=== PATIENT | male | born 1995 | race American Indian/Alaskan Native ===

== ENCOUNTER 2020-02-24 09:15 | Inpatient (IN) | payer BC, SELFPAY ==
[2020-02-24] MEDS ORDERED: ACETAMINOPHEN 325 MG TAB ONE (09:36)
[2020-02-24] MEDS ORDERED: ACETAMINOPHEN 325 MG TAB PO ONE (09:55)
[2020-02-24] MEDS ORDERED: SODIUM CHLORIDE 0.9% 1000 ML IV SOLN IV ONE (09:58)
[2020-02-24] MEDS ORDERED: ONDANSETRON 4 MG/2 ML INJ IV ONE (09:59)
--- NOTE | 2020-02-24 10:03 | Emergency Department Report ---
ED General Adult HPI - General Chief complaint: Dyspnea/Respdistress Stated complaint: CHEST PAIN Time Seen by Provider: 02/24/20 09:48 Source: patient Mode of arrival: Ambulatory Limitations: No Limitations - History of Present Illness Initial comments: Patient is 24 years old male with no significant past medical history. Patient presented to the ER complaining of fever, runny nose, cough congestion, difficulty breathing, nausea, vomiting and diarrhea. Patient stated the symptoms started 2 days ago. Patient stated that he has multiple coworkers tested positive for COVID-19. Patient denied any abdominal pain or chest pain. Severity scale (0 -10): 0 - Related Data Home Medications Medication Instructions Recorded Confirmed Last Taken No Known Home Medications [No 02/24/20 02/24/20 Unknown Reported Home Medications] Allergies Allergy/AdvReac Type Severity Reaction Status Date / Time No Known Allergies Allergy Unverified 02/24/20 09:23 ED Review of Systems ROS: Stated complaint: CHEST PAIN Other details as noted in HPI Comment: All other systems reviewed and negative Constitutional: chills, fever ENT: congestion Respiratory: cough, shortness of breath Cardiovascular: palpitations. denies: chest pain Gastrointestinal: nausea, vomiting, diarrhea Neurological: weakness ED Past Medical Hx - Past Medical History Previous Medical History?: No - Surgical History Past Surgical History?: No - Social History Smoking Status: Never Smoker Substance Use Type: Marijuana - Medications Home Medications: Home Medications Medication Instructions Recorded Confirmed Last Taken Type No Known Home Medications [No 02/24/20 02/24/20 Unknown History Reported Home Medications] ED Physical Exam - General Limitations: No Limitations General appearance: alert, in no apparent distress - Head Head exam: Present: atraumatic, normocephalic, normal inspection - Eye Eye exam: Present: normal appearance - ENT ENT exam: Present: mucous membranes dry - Neck Neck exam: Present: normal inspection, full ROM. Absent: tenderness, meningismus - Respiratory Respiratory exam: Present: normal lung sounds bilaterally - Cardiovascular Cardiovascular Exam: Present: tachycardia - GI/Abdominal GI/Abdominal exam: Present: soft, normal bowel sounds. Absent: distended, tenderness, guarding, rebound, rigid, organomegaly, mass, bruit, pulsatile mass, hernia - Extremities Exam Extremities exam: Present: normal inspection, full ROM, normal capillary refill. Absent: pedal edema, calf tenderness - Back Exam Back exam: Present: normal inspection, full ROM. Absent: tenderness, CVA tenderness (R), CVA tenderness (L), muscle spasm, paraspinal tenderness, vertebral tenderness - Neurological Exam Neurological exam: Present: alert, oriented X3, CN II-XII intact, normal gait, reflexes normal - Psychiatric Psychiatric exam: Present: normal mood - Skin Skin exam: Present: warm, intact, normal color ED Course Vital Signs 02/24/20 02/24/20 02/24/20 09:23 10:35 10:40 Temperature 103.3 F H Pulse Rate 127 H 109 H 106 H Respiratory 22 25 H 23 Rate Blood Pressure 140/84 Blood Pressure 159/94 [Right] O2 Sat by Pulse 93 95 Oximetry 02/24/20 02/24/20 02/24/20 10:50 10:56 11:00 Temperature Pulse Rate 115 H 104 H Respiratory 29 H 18 14 Rate Blood Pressure 140/84 140/84 Blood Pressure [Right] O2 Sat by Pulse 94 94 Oximetry 02/24/20 02/24/20 02/24/20 11:10 11:20 11:30 Temperature Pulse Rate 100 H 105 H 104 H Respiratory 24 13 23 Rate Blood Pressure 140/84 140/84 140/84 Blood Pressure [Right] O2 Sat by Pulse 93 94 94 Oximetry 02/24/20 02/24/20 02/24/20 11:40 11:50 12:00 Temperature Pulse Rate 103 H 108 H 94 H Respiratory 22 23 22 Rate Blood Pressure 141/64 141/64 141/64 Blood Pressure [Right] O2 Sat by Pulse 92 92 93 Oximetry 02/24/20 02/24/20 02/24/20 12:10 12:20 12:30 Temperature Pulse Rate 88 105 H 100 H Respiratory 20 19 26 H Rate Blood Pressure 132/77 132/77 132/77 Blood Pressure [Right] O2 Sat by Pulse 91 92 94 Oximetry 02/24/20 02/24/20 02/24/20 12:40 12:50 13:00 Temperature Pulse Rate 101 H 105 H 96 H Respiratory 26 H 26 H 25 H Rate Blood Pressure 132/77 132/77 132/77 Blood Pressure [Right] O2 Sat by Pulse 92 92 92 Oximetry 02/24/20 02/24/20 02/24/20 13:10 13:20 13:30 Temperature Pulse Rate 99 H 96 H 96 H Respiratory 26 H 24 30 H Rate Blood Pressure 152/90 152/90 152/90 Blood Pressure [Right] O2 Sat by Pulse 93 94 93 Oximetry 02/24/20 02/24/20 02/24/20 13:40 13:50 14:00 Temperature Pulse Rate 97 H 97 H 112 H Respiratory 27 H 26 H 26 H Rate Blood Pressure 152/90 152/90 152/90 Blood Pressure [Right] O2 Sat by Pulse 93 95 94 Oximetry 02/24/20 02/24/20 02/24/20 14:10 14:20 14:30 Temperature Pulse Rate 103 H 104 H 103 H Respiratory 19 28 H 26 H Rate Blood Pressure 158/85 158/85 158/85 Blood Pressure [Right] O2 Sat by Pulse 94 92 94 Oximetry 02/24/20 02/24/20 02/24/20 14:40 14:50 15:00 Temperature Pulse Rate 100 H 98 H 88 Respiratory 18 30 H 18 Rate Blood Pressure 158/85 158/85 158/85 Blood Pressure 132/72 [Right] O2 Sat by Pulse 90 94 95 Oximetry 02/24/20 15:10 Temperature Pulse Rate 106 H Respiratory 26 H Rate Blood Pressure 149/82 Blood Pressure [Right] O2 Sat by Pulse 93 Oximetry ED Medical Decision Making - Lab Data Result diagrams: 02/24/20 10:11 02/24/20 10:55 - Radiology Data Radiology results: report reviewed - Medical Decision Making Patient is 24 years old male with no significant past medical history. Patient presented to the ER complaining of fever, runny nose, cough congestion, difficulty breathing, nausea, vomiting and diarrhea. Patient stated the symptoms started 2 days ago. Patient stated that he has multiple coworkers tested positive for COVID-19. Patient denied any abdominal pain or chest pain. Sepsis protocol immediately initiated. Patient received normal saline 30 mL/kg. Chest x-ray showed an pneumonia and patient received Rocephin and Zithromax. Patient is highly suspected to have COVID-19. COVID-19 PCR ordered. Patient discussed with dr Root he agreed to admit to the hospital, Critical Care Time: Yes Critical care time in (mins) excluding proc time.: 30 Critical care attestation.: If time is entered above; I have spent that time in minutes in the direct care of this critically ill patient, excluding procedure time. ED Disposition Clinical Impression: Suspected 2019 novel coronavirus infection, Acute nausea with nonbilious vomiting Pneumonia Qualifiers: Laterality: left Disposition: DC-09 OP ADMIT IP TO THIS HOSP Is pt being admited?: Yes Condition: Stable
--- NOTE | 2020-02-24 10:22 | XRay Report ---
CHEST 1 VIEW INDICATION: Fever, cough and shortness of breath. COMPARISON: None FINDINGS: Support devices: None. Heart: Within normal limits. Lungs/Pleura: There is patchy infiltrate in the lingula concerning for pneumonia. The right lung is c lear. No pleural fluid or pneumothorax is appreciated. Additional findings: None. IMPRESSION: Left lung infiltrate concerning for pneumonia. Signer Name: Manuelito Smith Jr, MD Signed: 02/24/2020 10:18 AM Workstation Name: [id number]
[2020-02-24 10:33] LABS: Basophils % (Auto) 0.5 % (0.0-1.8); Lymphocytes # (Auto) 1.4 K/mm3 (1.2-5.4); Lymphocytes % (Auto) 13.2 % (13.4-35.0); Mean Corpuscular HGB Conc 36 % (32-34); Mean Corpuscular Volume 93 fl (84-94); Monocytes # (Auto) 1.2 K/mm3 (0.0-0.8); Monocytes % (Auto) 11.4 % (0.0-7.3); Platelet Count 270 K/mm3 (140-440); Red Blood Count 4.88 M/mm3 (3.65-5.03)
[2020-02-24 10:38] LABS: Hematocrit 45.5 % (35.5-45.6); Hemoglobin 16.3 gm/dl (11.8-15.2)
[2020-02-24 11:04] LABS: Alanine Aminotransferase 23 units/L (7-56); Albumin 4.4 g/dL (3.9-5); BUN/Creatinine Ratio 7; Blood Urea Nitrogen 7 mg/dL (9-20); Calcium 8.9 mg/dL (8.4-10.2); Hemolysis Index 16
[2020-02-24 11:48] LABS: C-Reactive Protein 5.6 mg/dL (0.00-1.30)
[2020-02-24] MEDS ORDERED: cefTRIAXone/NS 1 GM/50 ML 1 GM/50 ML BAG IV ONE ×2 (11:50→13:44)
[2020-02-24] MEDS ORDERED: AZITHROMYCIN 500 MG in SODIUM CHLORIDE 0.9% 250ML 250 ML IV ONE (12:15)
--- NOTE | 2020-02-24 12:27 | History and Physical Report ---
History of Present Illness Chief complaint: I cannot breathe History of present illness: 24 YO Male with Obesity Hypoventilation Syndrome presents to ED for evaluation. Pt states that he has experienced shortness of breath, fever to 103.3 F, rhinorrhea, nasal congestion, dry cough, difficulty breathing nausea, multiple episodes of vomiting, multiple loose stools over the past 2 days with persistently worsening symptoms over the same timeframe. Patient acknowledges known exposure to COVID-19. Patient transported to [facility] for further evaluation and care of the aforementioned symptoms. Patient seen and evaluated in the emergency department. Lab and imaging studies reviewed. Patient found to have acute hypoxemic respiratory failure with a pulse oximetry of 87% with exertion, left lower lobe pneumonia, obesity hypoventilation, as well as symptoms consistent with COVID-19 infection. Patient admitted to medical floor due to increased risk of cardiopulmonary decompensation and initiated on pneumonia protocol as well as COVID-19 protocol. Infectious disease service consulted in the emergency department. Patient knowledges fever, positive COVID-19 exposure, shortness of breath, malaise, weakness. Patient denies chest pain, palpitation, syncope, trauma, prolonged travel/immobility, unilateral leg swelling, calf pain, individual/family history of DVT/PE/bleeding/blood clotting disorders. No prior admission for review. No medication listed for reconciliation at the time of my admission. Past History Past Medical History: other (See HPI) Past Surgical History: No surgical history, Other (Reviewed) Social history: single. denies: smoking, alcohol abuse, prescription drug abuse Family history: diabetes, hypertension Medications and Allergies Allergies Allergy/AdvReac Type Severity Reaction Status Date / Time No Known Allergies Allergy Unverified 02/24/20 09:23 Active Meds: Active Medications Azithromycin 500 mg/ Sodium (Chloride) 250 mls @ 250 mls/hr IV ONCE ONE; Protocol Stop: 02/24/20 13:14 Review of Systems Constitutional: fever, weakness, malaise, lethargy, no weight loss, no weight gain, no sweats, no night sweats Ears, nose, mouth and throat: no ear pain, no ear discharge, no tinnitis, no decreased hearing, no nose pain Cardiovascular: shortness of breath, no chest pain, no orthopnea, no p alpitations Respiratory: cough, shortness of breath, no hemoptysis, no pain, no pain on inspiration Gastrointestinal: nausea, vomiting, diarrhea, no constipation, no BRBPR, no melena, no hematochezia Genitourinary Male: no hematuria, no flank pain, no discharge, no urinary frequency, no urinary hesitancy Rectal: no pain, no incontinence, no bleeding Musculoskeletal: no neck stiffness, no neck pain, no shooting arm pain, no arm numbness/tingling, no low back pain Integumentary: no rash, no pruritis, no redness, no sores, no wounds Neurological: no transient paralysis, no paralysis, no weakness, no parathesias, no numbness, no tingling Psychiatric: no anxiety, no memory loss, no change in sleep habits, no insomnia, no hypersomnia, no change in appetite Endocrine: no cold intolerance, no heat intolerance, no polyphagia, no excessive thirst, no polyuria, no nocturia, no excessive sweating Hematologic/Lymphatic: no easy bruising, no easy bleeding Allergic/Immunologic: no allergic rhinitis, no wheezing Exam - Constitutional Vitals: Temp Pulse Resp BP Pulse Ox 103.3 F H 127 H 22 159/94 93 02/24/20 09:23 02/24/20 09:23 02/24/20 09:23 02/24/20 09:23 02/24/20 09:23 General appearance: Present: mild distress, obese - EENT Eyes: Present: PERRL ENT: hearing intact, clear oral mucosa - Neck Neck: Present: supple, normal ROM - Respiratory Respiratory effort: normal Respiratory: bilateral: diminished, rhonchi - Cardiovascular Heart Sounds: Present: S1 & S2. Absent: rub, click - Extremities Extremities: pulses symmetrical, No edema Peripheral Pulses: within normal limits - Abdominal General gastrointestinal: Present: soft, non-tender, non-distended, normal bowel sounds Male genitourinary: Present: normal - Integumentary Integumentary: Present: clear, warm, dry - Musculoskeletal Musculoskeletal: generalized weakness - Psychiatric Psychiatric: appropriate mood/affect, intact judgment & insight - Neurologic Neurologic: CNII-XII intact, moves all extremities Results - Labs CBC & Chem 7: 02/24/20 10:11 02/24/20 10:55 Labs: Abnormal lab results 02/24/20 02/24/20 02/24/20 Range/Units 10:11 10:11 10:55 Hgb 16.3 H (11.8-15.2) gm/dl MCH 34 H (28-32) pg MCHC 36 H (32-34) % RDW 13.0 L (13.2-15.2) % Lymph % (Auto) 13.2 L (13.4-35.0) % [place] % (Auto) 11.4 H (0.0-7.3) % [place] # 1.2 H (0.0-0.8) K/mm3 Seg Neutrophils % 74.9 H (40.0-70.0) % Seg Neutrophils # 7.8 H (1.8-7.7) K/mm3 D-Dimer 676.73 H (0-234) ng/mlDDU BUN 7 L (9-20) mg/dL Glucose 106 H (75-100) mg/dL Ferritin (13.0-400.0) ng/mL Lactate Dehydrogenase (91-180) units/L C-Reactive Protein (0.00-1.30) mg/dL 02/24/20 02/24/20 Range/Units 10:55 10:55 Hgb (11.8-15.2) gm/dl MCH (28-32) pg MCHC (32-34) % RDW (13.2-15.2) % Lymph % (Auto) (13.4-35.0) % [place] % (Auto) (0.0-7.3) % [place] # (0.0-0.8) K/mm3 Seg Neutrophils % (40.0-70.0) % Seg Neutrophils # (1.8-7.7) K/mm3 D-Dimer (0-234) ng/mlDDU BUN (9-20) mg/dL Glucose 101 H (75-100) mg/dL Ferritin 2458.0 H (13.0-400.0) ng/mL Lactate Dehydrogenase 284 H (91-180) units/L C-Reactive Protein 5.60 H (0.00-1.30) mg/dL Assessment and Plan - Patient Problems (1) Acute hypoxemic respiratory failure Current Visit: Yes Status: Acute Plan to address problem: Supplemental oxygen, pulse oximetry, nebulizer therapy, chest x-ray, incentive spirometry, coronavirus testing. (2) Obesity hypoventilation syndrome Current Visit: Yes Status: Acute Plan to address problem: Supplemental oxygen, nebulizer therapy, noninvasive positive pressure ventilation as clinically indicated, incentive spirometry, early ambulation, pulmonary toilet. (3) Pneumonia Current Visit: Yes Status: Acute Qualifiers: Laterality: left Plan to address problem: Pneumonia protocol: IV antibiotic therapy, chest x-ray, nebulizer therapy, pulse oximetry, blood culture, (4) Suspected 2019 novel coronavirus infection Current Visit: Yes Status: Acute Plan to address problem: COVID-19 protocol: Infectious disease service consulted in ED, coronavirus PCR sent in emergency department, prolonged ventilation, (5) DVT prophylaxis Current Visit: Yes Status: Acute Plan to address problem: SCD to bilateral lower extremities while in bed, patient is ambulatory
[2020-02-24] MEDS ORDERED: ONDANSETRON 4 MG/2 ML INJ IV PRN (12:28)
[2020-02-24] MEDS ORDERED: SODIUM CHLORIDE 0.9% 1000 ML 1,000 ML ONE (13:44)
[2020-02-24] MEDS ORDERED: ONDANSETRON 4 MG/2 ML INJ ONE (13:44)
--- NOTE | 2020-02-24 15:24 | Consultation ---
History of Present Illness - Reason for Consult Consult date: 02/24/20 covid Requesting physician: AMY CHAVEZ - History of Present Illness 24 years old male with history of morbid obesity, admitted on due to 2-day history of worsening fever, rhinorrhea, dry cough, nausea, vomiting, diarrhea for 3 days. On arrival, temperature was 103.3, HR 127, RR 22, O2 sat 93%, BP 159/94. Initial WBC 10.4. D-dimer 676. Ferritin 2458. LDH 284. CRP 5.6. Lactate 1.6. Chest x-ray left-sided infiltrate. Review of Systems: positive in bold print General: fever, chills, malaise Cutaneous: rash, pruritus Head: headaches or injury Eyes: changes in vision, eye pain, double vision Ears: ear pain, ear discharge, ringing or hearing loss Nose: nose bleeding, stuffiness Mouth & throat: bleeding gums, horseness, no dental problems, or swollen glands Neck: no pain, node enlargement/lumps, tyroid enlargement or tenderness Respiratory: SOB, cough, RASHEED, wheezing, sputum, hemoptysis, pleuritic chest pain Cardiovascular: chest pain, leg edema, cyanosis, RASHEED, orthopnea Musculoskeletal: edema, deformities, pain Gastrointestinal: nausea, vomiting, diarrhea and abdominal pain, hematemesis, constipation, melena, bright red blood in stools, fecal incontinence, jaundice Genitourinary/Reproductive: frequent urination, dysuria, hematuria, incontinence Neurogical: seizures, headaches, weakness, paresthesias, loss of speech or vision; memory loss, vertigo, tremors, numbness Psychiatric: stable mood; excessive anxiety, sadness or moodiness Medications and Allergies Allergies Allergy/AdvReac Type Severity Reaction Status Date / Time No Known Allergies Allergy Unverified 02/24/20 09:23 Active Meds: Active Medications Acetaminophen (Tylenol) 650 mg PO Q4H PRN PRN Reason: Pain MILD(1-3)/Fever >100.5/VASQUEZ Ceftriaxone Sodium (Rocephin/Ns 2 Gm/100 Ml) 2 gm in 100 mls @ 200 mls/hr IV Q24HR WAYNE; Protocol Azithromycin 500 mg/ Sodium (Chloride) 250 mls @ 250 mls/hr IV Q24HR WAYNE; Protocol Ondansetron HCl (Zofran) 4 mg IV Q8H PRN PRN Reason: Nausea And Vomiting Sodium Chloride (Sodium Chloride Flush Syringe 10 Ml) 10 ml IV BID WAYNE Sodium Chloride (Sodium Chloride Flush Syringe 10 Ml) 10 ml IV PRN PRN PRN Reason: LINE FLUSH Physical Examination - Physical Exam Narrative exam: Limited physical exam for PPE conservation - Constitutional Vitals: Vital Signs Temp Pulse Resp BP Pulse Ox 103.3 F H 127 H 18 159/94 93 02/24/20 09:23 02/24/20 09:23 02/24/20 10:56 02/24/20 09:23 02/24/20 09:23 Temperature -Last 24 Hours Temperature 103.3 F Results - Labs CBC & Chem 7: 02/24/20 10:11 02/24/20 10:55 Labs: Abnormal lab results 02/24/20 02/24/20 02/24/20 Range/Units 10:11 10:11 10:55 Hgb 16.3 H (11.8-15.2) gm/dl MCH 34 H (28-32) pg MCHC 36 H (32-34) % RDW 13.0 L (13.2-15.2) % Lymph % (Auto) 13.2 L (13.4-35.0) % [place] % (Auto) 11.4 H (0.0-7.3) % [place] # 1.2 H (0.0-0.8) K/mm3 Seg Neutrophils % 74.9 H (40.0-70.0) % Seg Neutrophils # 7.8 H (1.8-7.7) K/mm3 D-Dimer 676.73 H (0-234) ng/mlDDU BUN 7 L (9-20) mg/dL Glucose 106 H (75-100) mg/dL Ferritin (13.0-400.0) ng/mL Lactate Dehydrogenase (91-180) units/L C-Reactive Protein (0.00-1.30) mg/dL 02/24/20 02/24/20 Range/Units 10:55 10:55 Hgb (11.8-15.2) gm/dl MCH (28-32) pg MCHC (32-34) % RDW (13.2-15.2) % Lymph % (Auto) (13.4-35.0) % [place] % (Auto) (0.0-7.3) % [place] # (0.0-0.8) K/mm3 Seg Neutrophils % (40.0-70.0) % Seg Neutrophils # (1.8-7.7) K/mm3 D-Dimer (0-234) ng/mlDDU BUN (9-20) mg/dL Glucose 101 H (75-100) mg/dL Ferritin 2458.0 H (13.0-400.0) ng/mL Lactate Dehydrogenase 284 H (91-180) units/L C-Reactive Protein 5.60 H (0.00-1.30) mg/dL Assessment and Plan Cultures: Blood cultures pending Assessment: 24 years old male with history of morbid obesity, admitted on due to 2-day history of worsening fever, rhinorrhea, dry cough, nausea, vomiting, diarrhea for 3 days: #Sepsis: present on admission with fever, tachycardia, hypotension, elevated lactate; source likely pneumonia. #Left-sided pneumonia: Given outbreak of COVID-19 this could be COVID-19 pneumonia. Other possibilities bacterial pneumonia, Legionella. Inflammatory markers are elevated- D-dimer 676. Ferritin 2458. LDH 284. CRP 5.6. #Morbid obesity. #Hypoxemia: Transient, currently on room air. Recommendations: Obtain consent for COVID-19 convalescent plasma Stat type and screen Follow-up blood cultures Obtain Streptococcus pneumoniae urine antigen and Legionella urine antigen Start ceftriaxone 2 g IV once a day Start azithromycin 500 g IV once a day Follow-up COVID-19 test, if positive will start trended severe 200 mg IV x1 followed by 100 mg IV daily x4 days Will consider Tocilizumab once ferritin level is available After COVID test POSITIVE and if hypoxemia will start Solu-Medrol 40 mg IV every 8 hour Will follow. Ana M Schaefer MD Infectious Diseases Special Procedure [facility] M [phone] O [phone]
[2020-02-24] MEDS: ACETAMINOPHEN 325 MG TAB PO PRN ×2 (17:27→22:58)
[2020-02-25] MEDS: ACETAMINOPHEN 325 MG TAB PO PRN ×3 (05:04→16:58)
[2020-02-25 09:06] LABS: Basophils % (Auto) 0.5 % (0.0-1.8); Eosinophils % (Auto) 0.1 % (0.0-4.3); Hematocrit 45.3 % (35.5-45.6); Hemoglobin 15.6 gm/dl (11.8-15.2); Lymphocytes # (Auto) 1.4 K/mm3 (1.2-5.4); Lymphocytes % (Auto) 15.7 % (13.4-35.0); Mean Corpuscular HGB Conc 35 % (32-34); Mean Corpuscular Volume 95 fl (84-94); Monocytes # (Auto) 0.9 K/mm3 (0.0-0.8); Monocytes % (Auto) 10.1 % (0.0-7.3); Platelet Count 271 K/mm3 (140-440); Red Blood Count 4.79 M/mm3 (3.65-5.03); Red Cell Distribution Width 13.5 % (13.2-15.2)
[2020-02-25 09:51] LABS: BUN/Creatinine Ratio 18; Blood Urea Nitrogen 18 mg/dL (9-20); Calcium 8.3 mg/dL (8.4-10.2)
[2020-02-25 09:52] LABS: Hemolysis Index 49
[2020-02-25] MEDS ORDERED: AZITHROMYCIN 500 MG in SODIUM CHLORIDE 0.9% 250ML 250 ML IV SCH (10:00)
[2020-02-25] MEDS: cefTRIAXone/NS 2 GM/100 ML 2 GM/100 ML BAG IV SCH (11:09)
--- NOTE | 2020-02-25 21:28 | Progress Note ---
Assessment and Plan Cultures: Blood cultures no growth today COVID POSITIVE Assessment: 24 years old male with history of morbid obesity, admitted on due to 2-day history of worsening fever, rhinorrhea, dry cough, nausea, vomiting, diarrhea for 3 days: #Sepsis: present on admission with fever, tachycardia, hypotension, elevated lactate; source likely pneumonia. #Left-sided pneumonia: secondary to COVID-19 pneumonia. Inflammatory markers are elevated- D-dimer 676. Ferritin 2458. LDH 284. CRP 5.6. #Morbid obesity. #Hypoxemia: Transient, currently on room air. Some sats down to 93% Recommendations: check exercise O2 sat ambulating start Solu-Medrol 40 mg IV every 8 hour if hypoxemia will consider remdesivir repeat markers Will consider Tocilizumab if ferritin worsening Follow-up Streptococcus pneumoniae urine antigen and Legionella urine antigen continue ceftriaxone 2 g IV once a day continue azithromycin 500 g IV once a day Will follow. Ana M Schaefer MD Infectious Diseases [employer] [facility] M [phone] O [phone] Subjective Date of service: 02/25/20 Principal diagnosis: COVID Interval history: Feels ok, noted fever on room air Objective - Exam Narrative Exam: Limited physical exam for PPE conservation - Constitutional Vitals: Vital Signs Temp Pulse Resp BP Pulse Ox 122.0 F H 105 H 20 145/91 97 02/25/20 16:16 02/25/20 16:16 02/25/20 16:16 02/25/20 16:16 02/25/20 16:16 Temperature -Last 24 Hours Temperature 122.0 F Temperature 102.9 F Temperature 99.6 F Temperature 102.2 F Temperature 103.0 F - Labs CBC & Chem 7: 02/25/20 08:03 02/25/20 08:03 Labs: Abnormal lab results 02/24/20 02/25/20 02/25/20 Range/Units 15:01 08:03 08:03 Hgb 15.6 H (11.8-15.2) gm/dl MCV 95 H (84-94) fl MCH 33 H (28-32) pg MCHC 35 H (32-34) % [place] % (Auto) 10.1 H (0.0-7.3) % [place] # 0.9 H (0.0-0.8) K/mm3 Seg Neutrophils % 73.6 H (40.0-70.0) % Sodium 135 L (137-145) mmol/L Chloride 94 L (98-107) mmol/L Calcium 8.3 L (8.4-10.2) mg/dL Coronavirus (PCR) Positive A (Negative)
[2020-02-25] MEDS: methylPREDNISolone Sod Succinate 40 MG/1 ML INJ IV SCH (22:44)
[2020-02-26] MEDS: methylPREDNISolone Sod Succinate 125 MG/2 ML INJ IV SCH ×3 (06:37→21:37)
[2020-02-26] MEDS: methylPREDNISolone Sod Succinate 40 MG/1 ML INJ IV SCH (07:23)
--- NOTE | 2020-02-26 08:27 | Progress Note ---
Assessment and Plan Day #2 Positive for coronavirus Symptomatically improving Oxygen saturations are around 92-94 (1) Acute hypoxemic respiratory failure Current Visit: Yes Status: Acute Plan to address problem: Supplemental oxygen, pulse oximetry, nebulizer therapy, chest x-ray, incentive spirometry, coronavirus testing. (2) Obesity hypoventilation syndrome Current Visit: Yes Status: Acute Plan to address problem: Supplemental oxygen, nebulizer therapy, noninvasive positive pressure ventilation as clinically indicated, incentive spirometry, early ambulation, pulmonary toilet. (3) Pneumonia Current Visit: Yes Status: Acute Qualifiers: Laterality: left Plan to address problem: Pneumonia protocol: IV antibiotic therapy, chest x-ray, nebulizer therapy, pulse oximetry, blood culture, (4) Suspected 2019 novel coronavirus infection Current Visit: Yes Status: Acute Plan to address problem: COVID-19 protocol: Infectious disease service consult appreciated, coronavirus PCR positive (5) DVT prophylaxis Current Visit: Yes Status: Acute Plan to address problem: SCD to bilateral lower extremities while in bed, patient is ambulatory Subjective Date of service: 02/25/20 Principal diagnosis: COVID Interval history: 24 YO Male with Obesity Hypoventilation Syndrome presents to ED for evaluation. Pt states that he has experienced shortness of breath, fever to 103.3 F, rhinorrhea, nasal congestion, dry cough, difficulty breathing nausea, multiple episodes of vomiting, multiple loose stools over the past 2 days with persistently worsening symptoms over the same timeframe. Patient acknowledges known exposure to COVID-19. Patient transported to [facility] for further evaluation and care of the aforementioned symptoms. Patient seen and evaluated in the [facility] department. Lab and imaging studies reviewed. Patient found to have acute hypoxemic respiratory failure with a pulse oximetry of 87% with exertion, left lower lobe pneumonia, obesity hypoventilation, as well as symptoms consistent with COVID-19 infection. Patient admitted to medical floor due to increased risk of cardiopulmonary decompensation and initiated on pneumonia protocol as well as COVID-19 protocol. Infectious disease service consulted in the emergency department. Patient knowledges fever, positive COVID-19 exposure, shortness of breath, malaise, weakness. Patient denies chest pain, palpitation, syncope, trauma, prolonged travel/immobility, unilateral leg swelling, calf pain, individual/family history of DVT/PE/bleeding/blood clotting disorders. No prior admission for review. No medication listed for reconciliation at the time of my admission. Day #2 Symptomatically better Objective - Constitutional Vitals: Vital Signs - 12hr 02/25/20 02/26/20 21:56 04:17 Temperature 99.1 F 98.8 F Pulse Rate 99 H 98 H Respiratory 20 18 Rate Blood Pressure 152/87 Blood Pressure 128/79 [Right] O2 Sat by Pulse 96 94 Oximetry General appearance: Present: mild distress, well-nourished - EENT Eyes: PERRL, EOM intact ENT: hearing intact, clear oral mucosa Ears: bilateral: normal - Neck Neck: supple, normal ROM - Respiratory Respiratory effort: normal Respiratory: bilateral: CTA, rales (Scattered) - Breasts Breasts: normal - Cardiovascular Heart rate: 88 Rhythm: regular Heart Sounds: Present: S1 & S2. Absent: gallop, rub Extremities: pulses intact, No edema, normal color, Full ROM - Gastrointestinal General gastrointestinal: Present: soft, non-tender, non-distended, normal bowel sounds - Genitourinary Male genitourinary: normal - Integumentary Integumentary: clear, warm, dry - Musculoskeletal Musculoskeletal: 1, strength equal bilaterally - Neurologic Neurologic: moves all extremities - Psychiatric Psychiatric: memory intact, appropriate mood/affect, intact judgment & insight - Labs CBC & Chem 7: 02/25/20 08:03 02/25/20 08:03 Labs: Abnormal lab results 02/24/20 02/25/20 02/25/20 Range/Units 15:01 08:03 08:03 Hgb 15.6 H (11.8-15.2) gm/dl MCV 95 H (84-94) fl MCH 33 H (28-32) pg MCHC 35 H (32-34) % [place] % (Auto) 10.1 H (0.0-7.3) % [place] # 0.9 H (0.0-0.8) K/mm3 Seg Neutrophils % 73.6 H (40.0-70.0) % Sodium 135 L (137-145) mmol/L Chloride 94 L (98-107) mmol/L Calcium 8.3 L (8.4-10.2) mg/dL Coronavirus (PCR) Positive A (Negative)
[2020-02-26] MEDS: cefTRIAXone/NS 2 GM/100 ML 2 GM/100 ML BAG IV SCH (09:42)
[2020-02-26] MEDS ORDERED: AZITHROMYCIN 250 MG TAB PO SCH (10:00)
--- NOTE | 2020-02-26 14:07 | Progress Note ---
Assessment and Plan Cultures: Blood cultures no growth today COVID POSITIVE Assessment: 24 years old male with history of morbid obesity, admitted on due to 2-day history of worsening fever, rhinorrhea, dry cough, nausea, vomiting, diarrhea for 3 days: #Sepsis: remains with fever; source likely pneumonia. #COVID pneumonia: secondary to COVID-19 pneumonia. Inflammatory markers are elevated- D-dimer 676. Ferritin 2458. LDH 284. CRP 5.6. #Morbid obesity. #Acute respiratory failure: now on NC 3L sats 93% Recommendations: Please consent for COVID plasma, already typed O positive Pulmonary consult Continue Solu-Medrol 40 mg IV every 8 hour day 2 Start Remdesivir Start Tocilizumab if ferritin worsening repeat markers Stop ceftriaxone and azithrmycin Will follow. Ana M Schaefer MD Infectious Diseases Applicator [employer] [facility] ([facility]) M [phone] O [phone] Subjective Date of service: 02/26/20 Principal diagnosis: COVID Interval history: Remains with fever now on 3L NC Objective - Exam Narrative Exam: Limited physical exam for PPE conservation - Constitutional Vitals: Vital Signs Temp Pulse Resp BP Pulse Ox 100.3 F H 84 24 132/78 93 02/26/20 11:58 02/26/20 11:58 02/26/20 11:58 02/26/20 11:58 02/26/20 11:58 Temperature -Last 24 Hours Temperature 100.3 F Temperature 98.8 F Temperature 99.1 F Temperature 122.0 F Temperature 102.9 F - Labs CBC & Chem 7: 02/25/20 08:03 02/25/20 08:03 Labs: Abnormal lab results 02/24/20 Range/Units 15:01 Coronavirus (PCR) Positive A (Negative)
[2020-02-26] MEDS ORDERED: REMDESIVIR 200 MG in SODIUM CHLORIDE 0.9% 250ML 250 ML IV ONE (15:00)
--- NOTE | 2020-02-26 15:43 | Consultation ---
History of Present Illness Consult date: 02/26/20 Reason for consult: dyspnea, cough, hypoxemia, pneumonia, other (Obesity) History of present illness: 24 YO Male with Obesity Hypoventilation Syndrome presents to ED for evaluation. Pt states that he has experienced shortness of breath, fever to 103.3 F, rhinorrhea, nasal congestion, dry cough, difficulty breathing nausea, multiple episodes of vomiting, multiple loose stools over the past 2 days with persistently worsening symptoms over the same timeframe. Patient acknowledges known exposure to COVID-19. Patient transported to [facility] for further evaluation and care of the aforementioned symptoms. Patient seen and evaluated in the emergency department. Lab and imaging studies reviewed. Patient found to have acute hypoxemic respiratory failure with a pulse oximetry of 87% with exertion, left lower lobe pneumonia, obesity hypoventilation, as well as symptoms consistent with COVID-19 infection. Patient admitted to medical floor due to increased risk of cardiopulmonary decompensation and initiated on pneumonia protocol as well as COVID-19 protocol. Infectious disease service consulted in the emergency department. Patient knowledges fever, positive COVID-19 exposure, shortness of breath, malaise, weakness. Patient denies chest pain, palpitation, syncope, trauma, prolonged travel/immobility, unilateral leg swelling, calf pa in, individual/family history of DVT/PE/bleeding/blood clotting disorders. No prior admission for review. Patient COVID 19 test positive. Patient is on I/V solumedrol and REMDESVIR. Initially treated pneumonia with ceftrioxone and zithromax. These antibiotics are stopped because of patients procalcitonin less than .o5. Patients Ferritin is high, Patient is on Tocilizumab. IL6 was ordered. Pulmonary infiltrate likely from viral pneumonia. Patient febrile. No leukocytosis. Recommend ABGs on room air. If patients respiratory status get any worse. Recommend to transfer to ICU Past History Past Medical History: other (See HPI) Past Surgical History: No surgical history, Other (Reviewed) Social history: single. denies: smoking, alcohol abuse, prescription drug abuse Family history: diabetes, hypertension Medications and Allergies Allergies Allergy/AdvReac Type Severity Reaction Status Date / Time No Known Allergies Allergy Unverified 02/24/20 09:23 Home Medications Medication Instructions Recorded Confirmed Last Taken Type No Known Home Medications [No 02/24/20 02/24/20 Unknown History Reported Home Medications] Active Meds: Active Medications Acetaminophen (Tylenol) 650 mg PO Q4H PRN PRN Reason: Pain MILD(1-3)/Fever >100.5/VASQUEZ Last Admin: 02/25/20 16:58 Dose: 650 mg Documented by: REMDESIVIR 100 mg/ Sodium (Chloride) 250 mls @ 500 mls/hr IV Q24H [facility] Stop: 03/01/20 15:29 TOCILIZUMAB 400 mg/ Sodium (Chloride) 120 mls @ 120 mls/hr IV ONCE ONE Stop: 02/26/20 16:59 Methylprednisolone Sodium Succinate (Solu-Medrol) 40 mg IV Q8HR [facility] Last Admin: 02/26/20 13:30 Dose: 40 mg Documented by: Ondansetron HCl (Zofran) 4 mg IV Q8H PRN PRN Reason: Nausea And Vomiting Sodium Chloride (Sodium Chloride Flush Syringe 10 Ml) 10 ml IV BID [facility] Last Admin: 02/26/20 09:43 Dose: 10 ml Documented by: Sodium Chloride (Sodium Chloride Flush Syringe 10 Ml) 10 ml IV PRN PRN PRN Reason: LINE FLUSH Sodium Chloride (Nacl 0.9%) 50 ml IV Q24H [facility] Stop: 03/01/20 15:01 Review of Systems All systems: negative Physical Examination Vital signs: Vital Signs Temp Pulse Resp BP Pulse Ox 103.3 F H 127 H 22 159/94 93 02/24/20 09:23 02/24/20 09:23 02/24/20 09:23 02/24/20 09:23 02/24/20 09:23 General appearance: alert, other (Obese, , [place] male mild shortness of breath at rest.) Eyes: non-icteric ENT: oropharynx moist Neck: supple, no JVD Ascultation: Bilateral: diminished breath sounds, rhonchi Cardiovascular: regular rate and rhythm Gastrointestinal: normoactive bowel sounds, soft, non-tender Integumentary: normal Extremities: no cyanosis, no edema Gait: normal gait normal mental status, non-focal exam, pupils equal and round, CN II-XII normal mood appropriate Results - Laboratory Findings CBC and BMP: 02/25/20 08:03 02/25/20 08:03 PT/INR, D-dimer D-Dimer 676.73 ng/mlDDU (0-234) H 02/24/20 10:55 Abnormal lab findings: Abnormal Labs 02/24/20 02/24/20 02/24/20 10:11 10:11 10:55 Hgb 16.3 H MCV MCH 34 H MCHC 36 H RDW 13.0 L Lymph % (Auto) 13.2 L [place] % (Auto) 11.4 H [place] # 1.2 H Seg Neutrophils % 74.9 H Seg Neutrophils # 7.8 H D-Dimer 676.73 H Sodium Chloride BUN 7 L Glucose 106 H Calcium Ferritin Lactate Dehydrogenase C-Reactive Protein Coronavirus (PCR) 02/24/20 02/24/20 02/24/20 10:55 10:55 15:01 Hgb MCV MCH MCHC RDW Lymph % (Auto) [place] % (Auto) [place] # Seg Neutrophils % Seg Neutrophils # D-Dimer Sodium Chloride BUN Glucose 101 H Calcium Ferritin 2458.0 H Lactate Dehydrogenase 284 H C-Reactive Protein 5.60 H Coronavirus (PCR) Positive A 02/25/20 02/25/20 08:03 08:03 Hgb 15.6 H MCV 95 H MCH 33 H MCHC 35 H RDW Lymph % (Auto) [place] % (Auto) 10.1 H [place] # 0.9 H Seg Neutrophils % 73.6 H Seg Neutrophils # D-Dimer Sodium 135 L Chloride 94 L BUN Glucose Calcium 8.3 L Ferritin Lactate Dehydrogenase C-Reactive Protein Coronavirus (PCR) - Diagnostic Findings Chest x-ray: report reviewed, image reviewed Additional studies: CHEST 1 VIEW 02/24/20 INDICATION: Fever, cough and shortness of breath. COMPARISON: None FINDINGS: Support devices: None. Heart: Within normal limits. Lungs/Pleura: There is patchy infiltrate in the lingula concerning for pneumonia. The right lung is clear. No pleural fluid or pneumothorax is appreciated. Additional findings: None. IMPRESSION: Left lung infiltrate concerning for pneumonia. Assessment and Plan 24 YO Male with Obesity Hypoventilation Syndrome presents to ED for evaluation. Pt states that he has experienced shortness of breath, fever to 103.3 F, rhinorrhea, nasal congestion, dry cough, difficulty breathing nausea, multiple episodes of vomiting, multiple loose stools over the past 2 days with persistently worsening symptoms over the same timeframe. Patient acknowledges known exposure to COVID-19. Patient transported to [facility] for further evaluation and care of the aforementioned symptoms. Patient seen and evaluated in the emergency department. Lab and imaging studies reviewed. Patient found to have acute hypoxemic respiratory failure with a pulse oximetry of 87% with exertion, left lower lobe pneumonia, obesity hypoventilation, as well as symptoms consistent with COVID-19 infection. Patient admitted to medical floor due to increased risk of cardiopulmonary decompensation and initiated on pneumonia protocol as well as COVID-19 protocol. Infectious disease service consulted in the emergency department. Patient knowledges fever, positive COVID-19 exposure, shortness of breath, malaise, weakness. Patient denies chest pain, palpitation, syncope, trauma, prolonged travel/immobility, unilateral leg swelling, calf pain, individual/family history of DVT/PE/bleeding/blood clotting disorders. No prior admission for review. Patient COVID 19 test positive. Patient is on I/V solumedrol and REMDESVIR. Initially treated pneumonia with ceftrioxone and zithromax. These antibiotics are stopped because of patients procalcitonin less than .o5. Patients Ferritin is high, Patient is on Tocilizumab. IL6 was ordered. Pulmonary infiltrate likely from viral pneumonia. Recommend ABGs on room air. If patients respiratory status get any worse. Recommend to transfer to ICU. I spent critical care time of 60 minutes on this patient obtaining history, Examining the patient, review chest xray and Labs results, talking to the respiratory therapist, nursing staff and talking infectious disease specialist and work out plan of treatment on this critically ill patient. - Patient Problems (1) Acute hypoxemic respiratory failure Current Visit: Yes Status: Acute Plan to address problem: O2 3 litres via nasal canula. Continue I/V solumedrol. Continue REMDESVIR. Tocilizumab Recommend ABGs on room air. (2) Pneumonia Current Visit: Yes Status: Acute Qualifiers: Laterality: left Plan to address problem: Patient is on REMDESVIR and Tocilizumab. Patients Procalcitonin level is low. Infectious diseases suspecting it is viral pneumonia. (3) Obesity hypoventilation syndrome Current Visit: Yes Status: Acute Plan to address problem: ABG on room air. (4) Coronavirus infection Current Visit: Yes Status: Acute Plan to address problem: Patient is on REMDESVIR and Tocilumab. (5) D-dimer, elevated Current Visit: Yes Status: Acute Plan to address problem: Recommend venous doppler studies and Angio CT of chest. Until above test results come back ,recommend S/C Prophylactic Lovenox.
[2020-02-26] MEDS ORDERED: TOCILIZUMAB 400 MG in SODIUM CHLORIDE 0.9% 100 ML IV ONE (16:00)
[2020-02-26 16:11] LABS: C-Reactive Protein 5.1 mg/dL (0.00-1.30)
[2020-02-26] MEDS: SODIUM CHLORIDE 0.9% 50 ML IVPB IV SCH (17:33)
--- NOTE | 2020-02-26 21:44 | Progress Note ---
Assessment and Plan Day #2 Positive for coronavirus Symptomatically improving Oxygen saturations are around 92-94 (1) Acute hypoxemic respiratory failure Current Visit: Yes Status: Acute Plan to address problem: Supplemental oxygen, pulse oximetry, nebulizer therapy, chest x-ray, incentive spirometry, coronavirus testing. (2) Obesity hypoventilation syndrome Current Visit: Yes Status: Acute Plan to address problem: Supplemental oxygen, nebulizer therapy, noninvasive positive pressure ventilation as clinically indicated, incentive spirometry, early ambulation, pulmonary toilet. (3) Pneumonia Current Visit: Yes Status: Acute Qualifiers: Laterality: left Plan to address problem: Pneumonia protocol: IV antibiotic therapy, chest x-ray, nebulizer therapy, pulse oximetry, blood culture, (4) Suspected 2019 novel coronavirus infection Current Visit: Yes Status: Acute Plan to address problem: COVID-19 protocol: Infectious disease service consult appreciated, coronavirus PCR positive (5) DVT prophylaxis Current Visit: Yes Status: Acute Plan to address problem: SCD to bilateral lower extremities while in bed, patient is ambulatory Subjective Date of service: 02/26/20 Principal diagnosis: COVID Interval history: 24 YO Male with Obesity Hypoventilation Syndrome presents to ED for evaluation. Pt states that he has experienced shortness of breath, fever to 103.3 F, rhinorrhea, nasal congestion, dry cough, difficulty breathing nausea, multiple episodes of vomiting, multiple loose stools over the past 2 days with persistently worsening symptoms over the same timeframe. Patient acknowledges known exposure to COVID-19. Patient transported to [facility] for further evaluation and care of the aforementioned symptoms. Patient seen and evaluated in [facility] department. Lab and imaging studies reviewed. Patient found to have acute hypoxemic respiratory failure with a pulse oximetry of 87% with exertion, left lower lobe pneumonia, obesity hypoventilation, as well as symptoms consistent with COVID-19 infection. Patient admitted to medical floor due to increased risk of cardiopulmonary decompensation and initiated on pneumonia protocol as well as COVID-19 protocol. Infectious disease service consulted in the emergency department. Patient knowledges fever, positive COVID-19 exposure, shortness of breath, malaise, weakness. Patient denies chest pain, palpitation, syncope, trauma, prolonged travel/immobility, unilateral leg swelling, calf pain, individual/family history of DVT/PE/bleeding/blood clotting disorders. No prior admission for review. No medication listed for reconciliation at the time of my admission. Day #2 Symptomatically better Objective - Constitutional Vitals: Vital Signs - 12hr 02/26/20 02/26/20 02/26/20 11:58 14:53 16:49 Temperature 100.3 F H 99.2 F Pulse Rate 84 82 Respiratory 24 20 20 Rate Blood Pressure 132/78 150/84 O2 Sat by Pulse 93 97 Oximetry General appearance: Present: no acute distress, well-nourished - EENT Eyes: PERRL, EOM intact ENT: hearing intact, clear oral mucosa Ears: bilateral: normal - Neck Neck: supple, normal ROM - Respiratory Respiratory effort: normal Respiratory: bilateral: CTA - Breasts Breasts: normal - Cardiovascular Rhythm: regular Heart Sounds: Present: S1 & S2. Absent: gallop, rub Extremities: pulses intact, No edema, normal color, Full ROM - Gastrointestinal General gastrointestinal: Present: soft, non-tender, non-distended, normal bowel sounds - Genitourinary Male genitourinary: normal - Integumentary Integumentary: clear, warm, dry - Musculoskeletal Musculoskeletal: 1, strength equal bilaterally - Neurologic Neurologic: moves all extremities - Psychiatric Psychiatric: memory intact, appropriate mood/affect, intact judgment & insight - Labs CBC & Chem 7: 02/25/20 08:03 02/25/20 08:03 Labs: Abnormal lab results 02/26/20 02/26/20 02/26/20 Range/Units 15:40 15:40 15:40 D-Dimer 1272.41 H (0-234) ng/mlDDU Ferritin > 2000.0 H (13.0-400.0) ng/mL Lactate Dehydrogenase 592 H (91-180) units/L C-Reactive Protein 5.10 H (0.00-1.30) mg/dL
[2020-02-27] MEDS: methylPREDNISolone Sod Succinate 125 MG/2 ML INJ IV SCH ×3 (05:29→22:32)
[2020-02-27 08:24] LABS: Basophils % (Auto) 0.3 % (0.0-1.8); Eosinophils % (Auto) 0.1 % (0.0-4.3); Hematocrit 49.6 % (35.5-45.6); Hemoglobin 16.7 gm/dl (11.8-15.2); Lymphocytes # (Auto) 0.9 K/mm3 (1.2-5.4); Lymphocytes % (Auto) 13.6 % (13.4-35.0); Mean Corpuscular HGB Conc 34 % (32-34); Mean Corpuscular Volume 94 fl (84-94); Monocytes # (Auto) 0.6 K/mm3 (0.0-0.8); Monocytes % (Auto) 8.9 % (0.0-7.3); Platelet Count 300 K/mm3 (140-440); Red Blood Count 5.28 M/mm3 (3.65-5.03); Red Cell Distribution Width 13.6 % (13.2-15.2)
[2020-02-27 08:43] LABS: Albumin 3.7 g/dL (3.9-5); BUN/Creatinine Ratio 16; Blood Urea Nitrogen 13 mg/dL (9-20); Calcium 8.7 mg/dL (8.4-10.2); Hemolysis Index 335
[2020-02-27 08:58] LABS: Alanine Aminotransferase TNR units/L (7-56)
[2020-02-27] MEDS: ENOXAPARIN 40 MG/0.4 ML INJ SUB-Q SCH (10:12)
--- NOTE | 2020-02-27 11:56 | Progress Note ---
Assessment and Plan Cultures: Blood cultures no growth today COVID POSITIVE Assessment: 24 years old male with history of morbid obesity, admitted on due to 2-day history of worsening fever, rhinorrhea, dry cough, nausea, vomiting, diarrhea for 3 days: #Sepsis: Fever improving; source likely pneumonia. #COVID pneumonia: secondary to COVID-19 pneumonia. Inflammatory markers are elevated- D-dimer 676-->1272. Ferritin 2458-->2000. LDH 284. CRP 5.6. #Morbid obesity. #Acute respiratory failure: Remains on NC 3L sats 93% Recommendations: Please consent for COVID plasma, already typed O positive Pulmonary consult pending Continue Solu-Medrol 40 mg IV every 8 hour day 3 Continue Remdesivir day 2of 5 Start Tocilizumab x [address] Paris will be rounding tomorrow until Monday, Dr. Bergeron will be rounding Monday Will follow. Ana M Schaefer MD Infectious Diseases Form [employer] [facility] ([facility]) M [phone] O [phone] Subjective Date of service: 02/27/20 Principal diagnosis: COVID Interval history: Remains with fever moving, feels better, remains on nasal cannula oxygen 3 L. Objective - Exam Narrative Exam: Limited physical exam for PPE conservation - Constitutional Vitals: Vital Signs Temp Pulse Resp BP Pulse Ox 99.1 F 80 20 138/76 94 02/27/20 05:59 02/27/20 05:59 02/27/20 05:59 02/27/20 05:59 02/27/20 09:14 Temperature -Last 24 Hours Temperature 99.1 F Temperature 99.2 F Temperature 99.2 F Temperature 100.3 F - Labs CBC & Chem 7: 02/27/20 08:00 02/27/20 08:00 Labs: Abnormal lab results 02/26/20 02/26/20 02/26/20 Range/Units 15:40 15:40 15:40 RBC (3.65-5.03) M/mm3 Hgb (11.8-15.2) gm/dl Hct (35.5-45.6) % [place] % (Auto) (0.0-7.3) % Lymph # (1.2-5.4) K/mm3 Seg Neutrophils % (40.0-70.0) % D-Dimer 1272.41 H (0-234) ng/mlDDU Sodium (137-145) mmol/L Chloride (98-107) mmol/L Glucose (75-100) mg/dL Ferritin > 2000.0 H (13.0-400.0) ng/mL Lactate Dehydrogenase 592 H (91-180) units/L C-Reactive Protein 5.10 H (0.00-1.30) mg/dL Albumin (3.9-5) g/dL 02/27/20 02/27/20 Range/Units 08:00 08:00 RBC 5.28 H (3.65-5.03) M/mm3 Hgb 16.7 H (11.8-15.2) gm/dl Hct 49.6 H (35.5-45.6) % [place] % (Auto) 8.9 H (0.0-7.3) % Lymph # 0.9 L (1.2-5.4) K/mm3 Seg Neutrophils % 77.1 H (40.0-70.0) % D-Dimer (0-234) ng/mlDDU Sodium 134 L (137-145) mmol/L Chloride 96.1 L (98-107) mmol/L Glucose 143 H (75-100) mg/dL Ferritin (13.0-400.0) ng/mL Lactate Dehydrogenase (91-180) units/L C-Reactive Protein (0.00-1.30) mg/dL Albumin 3.7 L (3.9-5) g/dL
--- NOTE | 2020-02-27 13:42 | Progress Note ---
Assessment and Plan Patient feeling better, breathing better. On 3 litres O2. O2 saturation running 95%. Patient walking in the room with oxygen. Patient running low grade temp at times. No leukocytosis. Repeating chest xray and ABGs tomorrow. I spent critical care time of 35 minutes on this patient obtaining history, review chest xray and Labs results, talking to the respiratory therapist, nursing staff and talking infectious disease specialist and work out plan of treatment on this critically ill patient. - Patient Problems (1) Acute hypoxemic respiratory failure Current Visit: Yes Status: Acute Plan to address problem: O2 3 litres via nasal canula. Continue I/V solumedrol. Continue REMDESVIR. Tocilizumab Chest xray and ABGs tomorrow. (2) Pneumonia Current Visit: Yes Status: Acute Qualifiers: Laterality: left Plan to address problem: Patient is on REMDESVIR and Tocilizumab. Patients Procalcitonin level is low. Infectious diseases suspecting it is viral pneumonia. (3) Obesity hypoventilation syndrome Current Visit: Yes Status: Acute Plan to address problem: ABG on room air. (4) Coronavirus infection Current Visit: Yes Status: Acute Plan to address problem: Patient is on REMDESVIR and Tocilumab. (5) D-dimer, elevated Current Visit: Yes Status: Acute Plan to address problem: Recommend venous doppler studies and Angio CT of chest. Until above test results come back ,recommend S/C Prophylactic Lovenox. Subjective Date of service: 02/27/20 Principal diagnosis: COVID Interval history: Patient feeling better, breathing better. On 3 litres O2. O2 saturation running 95%. Patient walking in the room with oxygen. Patient running low grade temp at times. No leukocytosis. Chest xray and ABGs tomorrow AM. Objective Vital Signs - 12hr 02/27/20 02/27/20 02/27/20 05:59 09:14 12:58 Temperature 99.1 F 98.7 F Pulse Rate 80 91 H Respiratory 20 18 Rate Blood Pressure 138/76 149/91 O2 Sat by Pulse 91 94 95 Oximetry Constitutional: alert, other (Obese, , [place] male mild shortness of breath at rest.) Eyes: non-icteric ENT: oropharynx moist Neck: supple, no JVD Ascultation: Bilateral: diminished breath sounds, rhonchi Cardiovascular: regular rate and rhythm Gastrointestinal: normoactive bowel sounds, soft, non-tender Integumentary: normal Extremities: no cyanosis, no edema Neurologic: normal mental status, non-focal exam, pupils equal and round, CN II- XII normal Psychiatric: mood appropriate CBC and BMP: 02/27/20 08:00 02/27/20 08:00 ABG, PT/INR, D-dimer: PT/INR, D-dimer D-Dimer 1272.41 ng/mlDDU (0-234) H 02/26/20 15:40 Abnormal lab findings: Abnormal Labs 02/24/20 02/24/20 02/24/20 10:11 10:11 10:55 RBC Hgb 16.3 H Hct MCV MCH 34 H MCHC 36 H RDW 13.0 L Lymph % (Auto) 13.2 L [place] % (Auto) 11.4 H Lymph # [place] # 1.2 H Seg Neutrophils % 74.9 H Seg Neutrophils # 7.8 H D-Dimer 676.73 H Sodium Chloride BUN 7 L Glucose 106 H Calcium Ferritin Lactate Dehydrogenase C-Reactive Protein Albumin Coronavirus (PCR) 02/24/20 02/24/20 02/24/20 10:55 10:55 15:01 RBC Hgb Hct MCV MCH MCHC RDW Lymph % (Auto) [place] % (Auto) Lymph # [place] # Seg Neutrophils % Seg Neutrophils # D-Dimer Sodium Chloride BUN Glucose 101 H Calcium Ferritin 2458.0 H Lactate Dehydrogenase 284 H C-Reactive Protein 5.60 H Albumin Coronavirus (PCR) Positive A 02/25/20 02/25/20 02/26/20 08:03 08:03 15:40 RBC Hgb 15.6 H Hct MCV 95 H MCH 33 H MCHC 35 H RDW Lymph % (Auto) [place] % (Auto) 10.1 H Lymph # [place] # 0.9 H Seg Neutrophils % 73.6 H Seg Neutrophils # D-Dimer 1272.41 H Sodium 135 L Chloride 94 L BUN Glucose Calcium 8.3 L Ferritin Lactate Dehydrogenase C-Reactive Protein Albumin Coronavirus (PCR) 02/26/20 02/26/20 02/27/20 15:40 15:40 08:00 RBC 5.28 H Hgb 16.7 H Hct 49.6 H MCV MCH MCHC RDW Lymph % (Auto) [place] % (Auto) 8.9 H Lymph # 0.9 L [place] # Seg Neutrophils % 77.1 H Seg Neutrophils # D-Dimer Sodium Chloride BUN Glucose Calcium Ferritin > 2000.0 H Lactate Dehydrogenase 592 H C-Reactive Protein 5.10 H Albumin Coronavirus (PCR) 02/27/20 08:00 RBC Hgb Hct MCV MCH MCHC RDW Lymph % (Auto) [place] % (Auto) Lymph # [place] # Seg Neutrophils % Seg Neutrophils # D-Dimer Sodium 134 L Chloride 96.1 L BUN Glucose 143 H Calcium Ferritin Lactate Dehydrogenase C-Reactive Protein Albumin 3.7 L Coronavirus (PCR)
[2020-02-27] MEDS: REMDESIVIR 100 MG in SODIUM CHLORIDE 0.9% 250ML 250 ML IV SCH (16:00)
[2020-02-27] MEDS: SODIUM CHLORIDE 0.9% 50 ML IVPB IV SCH (16:41)
--- NOTE | 2020-02-27 18:47 | Progress Note ---
Assessment and Plan Day #2 Positive for coronavirus Symptomatically improving Oxygen saturations are around 92-94 (1) Acute hypoxemic respiratory failure Current Visit: Yes Status: Acute Plan to address problem: Supplemental oxygen, pulse oximetry, nebulizer therapy, chest x-ray, incentive spirometry, coronavirus testing. (2) Obesity hypoventilation syndrome Current Visit: Yes Status: Acute Plan to address problem: Supplemental oxygen, nebulizer therapy, noninvasive positive pressure ventilation as clinically indicated, incentive spirometry, early ambulation, pulmonary toilet. (3) Pneumonia Current Visit: Yes Status: Acute Qualifiers: Laterality: left Plan to address problem: Pneumonia protocol: IV antibiotic therapy, chest x-ray, nebulizer therapy, pulse oximetry, blood culture, (4) Suspected 2019 novel coronavirus infection Current Visit: Yes Status: Acute Plan to address problem: COVID-19 protocol: Infectious disease service consult appreciated, coronavirus PCR positive (5) DVT prophylaxis Current Visit: Yes Status: Acute Plan to address problem: SCD to bilateral lower extremities while in bed, patient is ambulatory Subjective Date of service: 02/27/20 Principal diagnosis: COVID Interval history: 24 YO Male with Obesity Hypoventilation Syndrome presents to ED for evaluation. Pt states that he has experienced shortness of breath, fever to 103.3 F, rhinorrhea, nasal congestion, dry cough, difficulty breathing nausea, multiple episodes of vomiting, multiple loose stools over the past 2 days with persistently worsening symptoms over the same timeframe. Patient acknowledges known exposure to COVID-19. Patient transported to [facility] for further evaluation and care of the aforementioned symptoms. Patient seen and evaluated in the [facility] department. Lab and imaging studies reviewed. Patient found to have acute hypoxemic respiratory failure with a pulse oximetry of 87% with exertion, left lower lobe pneumonia, obesity hypoventilation, as well as symptoms consistent with COVID-19 infection. Patient admitted to medical floor due to increased risk of cardiopulmonary decompensation and initiated on pneumonia protocol as well as COVID-19 protocol. Infectious disease service consulted in the emergency department. Patient knowledges fever, positive COVID-19 exposure, shortness of breath, malaise, weakness. Patient denies chest pain, palpitation, syncope, trauma, prolonged travel/immobility, unilateral leg swelling, calf pain, individual/family history of DVT/PE/bleeding/blood clotting disorders. No prior admission for review. No medication listed for reconciliation at the time of my admission. Day #2 Symptomatically better Objective - Constitutional Vitals: Vital Signs - 12hr 02/27/20 02/27/20 02/27/20 09:14 11:00 12:58 Temperature 98.7 F Pulse Rate 91 H Respiratory 20 18 Rate Blood Pressure 149/91 O2 Sat by Pulse 94 95 95 Oximetry General appearance: Present: no acute distress, well-nourished - EENT Eyes: PERRL, EOM intact ENT: hearing intact, clear oral mucosa Ears: bilateral: normal - Neck Neck: supple, normal ROM - Respiratory Respiratory effort: normal Respiratory: bilateral: CTA - Breasts Breasts: normal - Cardiovascular Rhythm: regular Heart Sounds: Present: S1 & S2. Absent: gallop, rub Extremities: pulses intact, No edema, normal color, Full ROM - Gastrointestinal General gastrointestinal: Present: soft, non-tender, non-distended, normal bowel sounds - Genitourinary Male genitourinary: normal - Integumentary Integumentary: clear, warm, dry - Musculoskeletal Musculoskeletal: 1, strength equal bilaterally - Neurologic Neurologic: moves all extremities - Psychiatric Psychiatric: memory intact, appropriate mood/affect, intact judgment & insight - Labs CBC & Chem 7: 02/27/20 08:00 02/27/20 08:00 Labs: Abnormal lab results 02/27/20 02/27/20 Range/Units 08:00 08:00 RBC 5.28 H (3.65-5.03) M/mm3 Hgb 16.7 H (11.8-15.2) gm/dl Hct 49.6 H (35.5-45.6) % [place] % (Auto) 8.9 H (0.0-7.3) % Lymph # 0.9 L (1.2-5.4) K/mm3 Seg Neutrophils % 77.1 H (40.0-70.0) % Sodium 134 L (137-145) mmol/L Chloride 96.1 L (98-107) mmol/L Glucose 143 H (75-100) mg/dL Albumin 3.7 L (3.9-5) g/dL
[2020-02-28] MEDS: methylPREDNISolone Sod Succinate 125 MG/2 ML INJ IV SCH ×3 (05:19→21:08)
[2020-02-28] MEDS: ENOXAPARIN 40 MG/0.4 ML INJ SUB-Q SCH (09:46)
--- NOTE | 2020-02-28 10:42 | XRay Report ---
CHEST 1 VIEW, 02/28/2020 8:40 AM CLINICAL INFORMATION/INDICATION: Pneumonia COMPARISON: Chest radiograph, 02/24/2020 FINDINGS: SUPPORT DEVICES: None. HEART: The cardiac silhouette is normal in size. LUNGS/PLEURA: Focal airspace disease within the left midlung has significantly improved but not compl etely cleared. The right lung remains grossly clear with bibasilar atelectasis. ADDITIONAL FINDINGS: No additional acute findings. IMPRESSION: 1. Interval improvement of left midlung airspace disease. Signer Name: Peri Posada MD Signed: 02/28/2020 10:37 AM Workstation Name: [id number]
--- NOTE | 2020-02-28 10:50 | Progress Note ---
Assessment and Plan Acute hypoxic respiratory failure Sepsis: Present on admission with fever, tachycardia, tachypnea, likely secondary to pneumonia. Left lung pneumonia: COVID-19 infection Morbid obesity -ABG, CXR in 48 hours -Wean supplemental oxygen to keep O2 sats >92% -Awake proning and lateral positioning to help with hypoxia- encouraged to continue -Fluid conservative measures as tolerated by hemodynamics and renal function -Bronchodilators , MDI with pulmonary hygiene per RT -Accuchecks with glycemic control per SSI (Target blood glucose of 140-180 mg/dL; avoid hypoglycemia) -Avoid nephrotoxins, closely monitor renal function - Stress ulcer prophylaxis while on steroids -VTE prophylaxis (trend D-dimer, may need to adjust to therapeutic anticoagulation) - Monitor hemodynamics closely -Empiric antibiotics for CAP COVID SPECIFIC INTERVENTIONS -Airborne, contact isolation for COVID per facility protocols -Trend inflammatory markers per facility protocol -On solumedrol 40mg IV q8 -Continue Remdesivir to complete therapy - s/p Tocilizumab 02/27/2020 -All supportive interventions including Vit C, Zn supplementation -Continue all supportive care -Contact tracing and testing of his contacts- he lives with his brother, who he says has tested but awaiting results -Further treatment considerations based on ID/Pulmonary protocols Subjective Date of service: 02/28/20 Principal diagnosis: COVID Interval history: Follow up for sepsis; Acute hypoxic respiratory; COVID infection; Left lung pneumonia; Morbid obesity Sen and examined. Vitals, labs, medications, chart reviewed. Nursing and respiratory staff consulted, no adverse overnight events but continues to require 3L of oxygen to maintain saturations above 92%. he denies any chest pain, some shortness of breath that is slowly improving. No fevers, no nausea or vomiting. No diarrhea. He is a life long non smoker and lives with his brother. Objective Vital Signs - 12hr 02/27/20 02/27/20 02/28/20 23:00 23:31 06:22 Temperature 97.8 F Pulse Rate 94 H Respiratory 18 20 Rate Blood Pressure 155/91 O2 Sat by Pulse 96 92 95 Oximetry Constitutional: alert, other (Obese, , [place] male mild shortness of breath at rest, lying prone) Eyes: non-icteric ENT: oropharynx moist Neck: supple, no JVD Ascultation: Bilateral: diminished breath sounds, rhonchi Cardiovascular: regular rate and rhythm Gastrointestinal: normoactive bowel sounds, soft, non-tender Integumentary: normal Extremities: no cyanosis, no edema Neurologic: normal mental status, non-focal exam, pupils equal and round, CN II- XII normal Psychiatric: mood appropriate CBC and BMP: 02/27/20 08:00 02/27/20 08:00 ABG, PT/INR, D-dimer: PT/INR, D-dimer D-Dimer 1272.41 ng/mlDDU (0-234) H 02/26/20 15:40 Abnormal lab findings: Abnormal Labs 02/24/20 02/24/20 02/24/20 10:11 10:11 10:55 RBC Hgb 16.3 H Hct MCV MCH 34 H MCHC 36 H RDW 13.0 L Lymph % (Auto) 13.2 L [place] % (Auto) 11.4 H Lymph # [place] # 1.2 H Seg Neutrophils % 74.9 H Seg Neutrophils # 7.8 H D-Dimer 676.73 H Sodium Chloride BUN 7 L Glucose 106 H Calcium Ferritin Lactate Dehydrogenase C-Reactive Protein Albumin Coronavirus (PCR) 02/24/20 02/24/20 02/24/20 10:55 10:55 15:01 RBC Hgb Hct MCV MCH MCHC RDW Lymph % (Auto) [place] % (Auto) Lymph # [place] # Seg Neutrophils % Seg Neutrophils # D-Dimer Sodium Chloride BUN Glucose 101 H Calcium Ferritin 2458.0 H Lactate Dehydrogenase 284 H C-Reactive Protein 5.60 H Albumin Coronavirus (PCR) Positive A 02/25/20 02/25/20 02/26/20 08:03 08:03 15:40 RBC Hgb 15.6 H Hct MCV 95 H MCH 33 H MCHC 35 H RDW Lymph % (Auto) [place] % (Auto) 10.1 H Lymph # [place] # 0.9 H Seg Neutrophils % 73.6 H Seg Neutrophils # D-Dimer 1272.41 H Sodium 135 L Chloride 94 L BUN Glucose Calcium 8.3 L Ferritin Lactate Dehydrogenase C-Reactive Protein Albumin Coronavirus (PCR) 02/26/20 02/26/20 02/27/20 15:40 15:40 08:00 RBC 5.28 H Hgb 16.7 H Hct 49.6 H MCV MCH MCHC RDW Lymph % (Auto) [place] % (Auto) 8.9 H Lymph # 0.9 L [place] # Seg Neutrophils % 77.1 H Seg Neutrophils # D-Dimer Sodium Chloride BUN Glucose Calcium Ferritin > 2000.0 H Lactate Dehydrogenase 592 H C-Reactive Protein 5.10 H Albumin Coronavirus (PCR) 02/27/20 08:00 RBC Hgb Hct MCV MCH MCHC RDW Lymph % (Auto) [place] % (Auto) Lymph # [place] # Seg Neutrophils % Seg Neutrophils # D-Dimer Sodium 134 L Chloride 96.1 L BUN Glucose 143 H Calcium Ferritin Lactate Dehydrogenase C-Reactive Protein Albumin 3.7 L Coronavirus (PCR) Chest x-ray: image reviewed (Cardiomegaly with left lower lobe infiltrate)
[2020-02-28] MEDS: REMDESIVIR 100 MG in SODIUM CHLORIDE 0.9% 250ML 250 ML IV SCH (14:25)
[2020-02-28] MEDS: SODIUM CHLORIDE 0.9% 50 ML IVPB IV SCH (15:16)
--- NOTE | 2020-02-28 21:48 | Progress Note ---
Assessment and Plan Day #2 Positive for coronavirus Symptomatically improving Oxygen saturations are around 92-94 (1) Acute hypoxemic respiratory failure Current Visit: Yes Status: Acute Plan to address problem: Supplemental oxygen, pulse oximetry, nebulizer therapy, chest x-ray, incentive spirometry, coronavirus testing. (2) Obesity hypoventilation syndrome Current Visit: Yes Status: Acute Plan to address problem: Supplemental oxygen, nebulizer therapy, noninvasive positive pressure ventilation as clinically indicated, incentive spirometry, early ambulation, pulmonary toilet. (3) Pneumonia Current Visit: Yes Status: Acute Qualifiers: Laterality: left Plan to address problem: Pneumonia protocol: IV antibiotic therapy, chest x-ray, nebulizer therapy, pulse oximetry, blood culture, (4) Suspected 2019 novel coronavirus infection Current Visit: Yes Status: Acute Plan to address problem: COVID-19 protocol: Infectious disease service consult appreciated, coronavirus PCR positive (5) DVT prophylaxis Current Visit: Yes Status: Acute Plan to address problem: SCD to bilateral lower extremities while in bed, patient is ambulatory Subjective Date of service: 02/28/20 Principal diagnosis: COVID Interval history: 24 YO Male with Obesity Hypoventilation Syndrome presents to ED for evaluation. Pt states that he has experienced shortness of breath, fever to 103.3 F, rhinorrhea, nasal congestion, dry cough, difficulty breathing nausea, multiple episodes of vomiting, multiple loose stools over the past 2 days with persistently worsening symptoms over the same timeframe. Patient acknowledges known exposure to COVID-19. Patient transported to [facility] for further evaluation and care of the aforementioned symptoms. Patient seen and evaluated in the [facility] department. Lab and imaging studies reviewed. Patient found to have acute hypoxemic respiratory failure with a pulse oximetry of 87% with exertion, left lower lobe pneumonia, obesity hypoventilation, as well as symptoms consistent with COVID-19 infection. Patient admitted to medical floor due to increased risk of cardiopulmonary decompensation and initiated on pneumonia protocol as well as COVID-19 protocol. Infectious disease service consulted in the emergency department. Patient knowledges fever, positive COVID-19 exposure, shortness of breath, malaise, weakness. Patient denies chest pain, palpitation, syncope, trauma, prolonged travel/immobility, unilateral leg swelling, calf pain, individual/family history of DVT/PE/bleeding/blood clotting disorders. No prior admission for review. No medication listed for reconciliation at the time of my admission. Day #2 Symptomatically better Objective - Constitutional Vitals: Vital Signs - 12hr 02/28/20 02/28/20 02/28/20 10:00 11:25 16:10 Temperature 98.6 F 98.7 F Pulse Rate 75 86 Respiratory 18 18 Rate Blood Pressure 138/73 134/74 O2 Sat by Pulse 96 93 91 Oximetry 02/28/20 20:31 Temperature Pulse Rate Respiratory Rate Blood Pressure O2 Sat by Pulse 94 Oximetry General appearance: Present: no acute distress, well-nourished - EENT Eyes: PERRL, EOM intact ENT: hearing intact, clear oral mucosa Ears: bilateral: normal - Neck Neck: supple, normal ROM - Respiratory Respiratory effort: normal Respiratory: bilateral: CTA - Breasts Breasts: normal - Cardiovascular Rhythm: regular Heart Sounds: Present: S1 & S2. Absent: gallop, rub Extremities: pulses intact, No edema, normal color, Full ROM - Gastrointestinal General gastrointestinal: Present: soft, non-tender, non-distended, normal bowel sounds - Genitourinary Male genitourinary: normal - Integumentary Integumentary: clear, warm, dry - Musculoskeletal Musculoskeletal: 1, strength equal bilaterally - Neurologic Neurologic: moves all extremities - Psychiatric Psychiatric: memory intact, appropriate mood/affect, intact judgment & insight - Labs CBC & Chem 7: 02/27/20 08:00 02/27/20 08:00
[2020-02-29] MEDS: methylPREDNISolone Sod Succinate 125 MG/2 ML INJ IV SCH ×3 (06:38→22:00)
[2020-02-29] MEDS: ENOXAPARIN 40 MG/0.4 ML INJ SUB-Q SCH (09:20)
--- NOTE | 2020-02-29 11:40 | Progress Note ---
Assessment and Plan Patient feeling better, breathing better. On 2 litres O2. O2 saturation running 91%. Patient walking in the room with oxygen. Patient afebrile. No leukocytosis. When he is lying in bed, maintaining prone position. Chest xray 02/28/20 reported improvement in left mid lung infiltrate. - Patient Problems (1) Acute hypoxemic respiratory failure Current Visit: Yes Status: Acute Plan to address problem: O2 2 litres via nasal canula. Continue I/V solumedrol. Continue REMDESVIR. Tocilizumab (2) Pneumonia Current Visit: Yes Status: Acute Qualifiers: Laterality: left Plan to address problem: Patient is on REMDESVIR and Tocilizumab. Patients Procalcitonin level is low. Infectious diseases suspecting it is viral pneumonia. (3) Obesity hypoventilation syndrome Current Visit: Yes Status: Acute Plan to address problem: ABG on room air. (4) Coronavirus infection Current Visit: Yes Status: Acute Plan to address problem: Patient is on REMDESVIR and Tocilumab. (5) D-dimer, elevated Current Visit: Yes Status: Acute Plan to address problem: Recommend venous doppler studies and Angio CT of chest. Until above test results come back ,recommend S/C Prophylactic Lovenox. Subjective Date of service: 02/29/20 Principal diagnosis: COVID Interval history: Patient feeling better, breathing better. On 2 litres O2. O2 saturation running 91%. Patient walking in the room with oxygen. Patient afebrile. No leukocytosis. When he is lying in bed, maintaining prone position. Chest xray 02/28/20 reported improvement in left mid lung infiltrate. Objective Vital Signs - 12hr 02/29/20 02/29/20 06:08 08:42 Temperature 98.4 F Pulse Rate 73 Respiratory 20 Rate Blood Pressure 152/73 O2 Sat by Pulse 93 93 Oximetry Constitutional: no acute distress, alert, other (Obese) Eyes: non-icteric ENT: oropharynx moist Neck: supple, no JVD Ascultation: Bilateral: diminished breath sounds, rhonchi Cardiovascular: regular rate and rhythm Gastrointestinal: normoactive bowel sounds, soft, non-tender Integumentary: normal Extremities: no cyanosis, no edema Neurologic: normal mental status, non-focal exam, pupils equal and round, CN II- XII normal Psychiatric: mood appropriate CBC and BMP: 02/27/20 08:00 02/27/20 08:00 ABG, PT/INR, D-dimer: PT/INR, D-dimer D-Dimer 1272.41 ng/mlDDU (0-234) H 02/26/20 15:40 Abnormal lab findings: Abnormal Labs 02/24/20 02/24/20 02/24/20 10:11 10:11 10:55 RBC Hgb 16.3 H Hct MCV MCH 34 H MCHC 36 H RDW 13.0 L Lymph % (Auto) 13.2 L [place] % (Auto) 11.4 H Lymph # [place] # 1.2 H Seg Neutrophils % 74.9 H Seg Neutrophils # 7.8 H D-Dimer 676.73 H Sodium Chloride BUN 7 L Glucose 106 H Calcium Ferritin Lactate Dehydrogenase C-Reactive Protein Albumin Coronavirus (PCR) 02/24/20 02/24/20 02/24/20 10:55 10:55 15:01 RBC Hgb Hct MCV MCH MCHC RDW Lymph % (Auto) [place] % (Auto) Lymph # [place] # Seg Neutrophils % Seg Neutrophils # D-Dimer Sodium Chloride BUN Glucose 101 H Calcium Ferritin 2458.0 H Lactate Dehydrogenase 284 H C-Reactive Protein 5.60 H Albumin Coronavirus (PCR) Positive A 02/25/20 02/25/20 02/26/20 08:03 08:03 15:40 RBC Hgb 15.6 H Hct MCV 95 H MCH 33 H MCHC 35 H RDW Lymph % (Auto) [place] % (Auto) 10.1 H Lymph # [place] # 0.9 H Seg Neutrophils % 73.6 H Seg Neutrophils # D-Dimer 1272.41 H Sodium 135 L Chloride 94 L BUN Glucose Calcium 8.3 L Ferritin Lactate Dehydrogenase C-Reactive Protein Albumin Coronavirus (PCR) 02/26/20 02/26/20 02/27/20 15:40 15:40 08:00 RBC 5.28 H Hgb 16.7 H Hct 49.6 H MCV MCH MCHC RDW Lymph % (Auto) [place] % (Auto) 8.9 H Lymph # 0.9 L [place] # Seg Neutrophils % 77.1 H Seg Neutrophils # D-Dimer Sodium Chloride BUN Glucose Calcium Ferritin > 2000.0 H Lactate Dehydrogenase 592 H C-Reactive Protein 5.10 H Albumin Coronavirus (PCR) 02/27/20 08:00 RBC Hgb Hct MCV MCH MCHC RDW Lymph % (Auto) [place] % (Auto) Lymph # [place] # Seg Neutrophils % Seg Neutrophils # D-Dimer Sodium 134 L Chloride 96.1 L BUN Glucose 143 H Calcium Ferritin Lactate Dehydrogenase C-Reactive Protein Albumin 3.7 L Coronavirus (PCR) Chest x-ray: report reviewed, image reviewed Additional Studies: CHEST 1 VIEW, 02/28/2020 8:40 AM CLINICAL INFORMATION/INDICATION: Pneumonia COMPARISON: Chest radiograph, 02/24/2020 FINDINGS: SUPPORT DEVICES: None. HEART: The cardiac silhouette is normal in size. LUNGS/PLEURA: Focal airspace disease within the left midlung has significantly improved but not completely cleared. The right lung remains grossly clear with bibasilar atelectasis. ADDITIONAL FINDINGS: No additional acute findings. IMPRESSION: 1. Interval improvement of left midlung airspace disease.
[2020-02-29] MEDS: SODIUM CHLORIDE 0.9% 50 ML IVPB IV SCH (15:16)
[2020-02-29] MEDS: REMDESIVIR 100 MG in SODIUM CHLORIDE 0.9% 250ML 250 ML IV SCH (15:16)
--- NOTE | 2020-02-29 19:15 | Progress Note ---
Assessment and Plan Cultures: Blood cultures no growth today COVID POSITIVE Assessment: 24 years old male with history of morbid obesity, admitted on due to 2-day history of worsening fever, rhinorrhea, dry cough, nausea, vomiting, diarrhea for 3 days: #Sepsis: Fever improving; source likely pneumonia. #COVID pneumonia: secondary to COVID-19 pneumonia. Inflammatory markers are elevated- D-dimer 676-->1272. Ferritin 2458-->2000. LDH 284. CRP 5.6. #Morbid obesity. #Acute respiratory failure: Remains on NC 3L sats 93% Recommendations: Continue Solu-Medrol 40 mg IV every 8 hour day 5 Continue Remdesivir day 4of 5 Completed Tocilizumab x 1 02/27/[address] Bergeron will be rounding Monday Patricia Paris MD [facility] ([facility]) M: [phone] O: [phone] F: [phone] Subjective Date of service: 02/29/20 Principal diagnosis: COVID Interval history: Afebrile, currently on 2 L nasal cannula. Objective - Exam Narrative Exam: Physical exam deferred due to PPE conservation strategy. Reviewed in chart. - Constitutional Vitals: Vital Signs Temp Pulse Resp BP Pulse Ox 97.7 F 55 L 18 138/72 94 02/29/20 16:44 02/29/20 16:44 02/29/20 16:44 02/29/20 16:44 02/29/20 16:44 Temperature -Last 24 Hours Temperature 97.7 F Temperature 98.1 F Temperature 98.4 F Temperature 98.0 F - Labs CBC & Chem 7: 02/27/20 08:00 02/27/20 08:00
--- NOTE | 2020-02-29 20:41 | Progress Note ---
Subjective Date of service: 02/29/20 Principal diagnosis: COVID Interval history: 24 YO Male with Obesity Hypoventilation Syndrome presents to ED for evaluation. Pt states that he has experienced shortness of breath, fever to 103.3 F, rhinorrhea, nasal congestion, dry cough, difficulty breathing nausea, multiple episodes of vomiting, multiple loose stools over the past 2 days with persistently worsening symptoms over the same timeframe. Patient acknowledges known exposure to COVID-19. Patient transported to [facility] for further evaluation and care of the aforementioned symptoms. Patient seen and evaluated in the emergency department. Lab and imaging studies reviewed. Patient found to have acute hypoxemic respiratory failure with a pulse oximetry of 87% with exertion, left lower lobe pneumonia, obesity hypoventilation, as well as symptoms consistent with COVID-19 infection. Patient admitted to medical floor due to increased risk of cardiopulmonary decompensation and initiated on pneumonia protocol as well as COVID-19 protocol. Infectious disease service consulted in the emergency department. Patient knowledges fever, positive COVID-19 exposure, shortness of breath, malaise, weakness. Patient denies chest pain, palpitation, syncope, trauma, prolonged travel/immobility, unilateral leg swelling, calf pain, individual/family history of DVT/PE/bleeding/blood clotting disorders. No prior admission for review. No medication listed for reconciliation at the time of my admission. Day #2 Symptomatically better Objective - Constitutional Vitals: Vital Signs - 12hr 02/29/20 02/29/20 02/29/20 08:42 11:40 16:44 Temperature 98.1 F 97.7 F Pulse Rate 91 H 55 L Respiratory 18 18 Rate Blood Pressure 164/78 138/72 O2 Sat by Pulse 93 91 94 Oximetry General appearance: Present: no acute distress, well-nourished - EENT Eyes: PERRL, EOM intact ENT: hearing intact, clear oral mucosa Ears: bilateral: normal - Neck Neck: supple, normal ROM - Respiratory Respiratory effort: normal Respiratory: bilateral: CTA - Breasts Breasts: normal - Cardiovascular Rhythm: regular Heart Sounds: Present: S1 & S2. Absent: gallop, rub Extremities: pulses intact, No edema, normal color, Full ROM - Gastrointestinal General gastrointestinal: Present: soft, non-tender, non-distended, normal bowel sounds - Genitourinary Male genitourinary: normal - Integumentary Integumentary: clear, warm, dry - Musculoskeletal Musculoskeletal: 1, strength equal bilaterally - Neurologic Neurologic: moves all extremities - Psychiatric Psychiatric: memory intact, appropriate mood/affect, intact judgment & insight - Labs CBC & Chem 7: 02/27/20 08:00 02/27/20 08:00
[2020-03-01] MEDS: methylPREDNISolone Sod Succinate 125 MG/2 ML INJ IV SCH ×3 (05:56→22:08)
[2020-03-01 06:26] LABS: C-Reactive Protein 0.5 mg/dL (0.00-1.30)
[2020-03-01] MEDS: ENOXAPARIN 40 MG/0.4 ML INJ SUB-Q SCH (09:13)
[2020-03-01] MEDS: SODIUM CHLORIDE 0.9% 50 ML IVPB IV SCH (15:25)
[2020-03-01] MEDS: REMDESIVIR 100 MG in SODIUM CHLORIDE 0.9% 250ML 250 ML IV SCH (15:25)
--- NOTE | 2020-03-01 21:11 | Progress Note ---
Assessment and Plan Patient feeling better, breathing better. On 2 litres O2. O2 saturation running 98%. Patient walking in the room with oxygen. Patient afebrile. No leukocytosis. When he is lying in bed, maintaining prone position. Chest xray 02/28/20 reported improvement in left mid lung infiltrate. - Patient Problems (1) Acute hypoxemic respiratory failure Current Visit: Yes Status: Acute Plan to address problem: O2 2 litres via nasal canula. Continue I/V solumedrol. Continue REMDESVIR. Tocilizumab (2) Pneumonia Current Visit: Yes Status: Acute Qualifiers: Laterality: left Plan to address problem: Patient is on REMDESVIR and Tocilizumab. Patients Procalcitonin level is low. Infectious diseases suspecting it is viral pneumonia. (3) Obesity hypoventilation syndrome Current Visit: Yes Status: Acute Plan to address problem: ABG on room air. (4) Coronavirus infection Current Visit: Yes Status: Acute Plan to address problem: Patient is on REMDESVIR and Tocilumab. (5) D-dimer, elevated Current Visit: Yes Status: Acute Plan to address problem: Recommend venous doppler studies and Angio CT of chest. Until above test results come back ,recommend S/C Prophylactic Lovenox. Subjective Date of service: 03/01/20 Principal diagnosis: COVID Interval history: Patient feeling better, breathing better. On 2 litres O2. O2 saturation running 98%. Patient walking in the room with oxygen. Patient afebrile. No leukocytosis. When he is lying in bed, maintaining prone position. Chest xray 02/28/20 reported improvement in left mid lung infiltrate. Objective Vital Signs - 12hr 03/01/20 03/01/20 03/01/20 11:51 16:22 20:59 Temperature 98.3 F 98.1 F Pulse Rate 64 78 Respiratory 20 18 Rate Blood Pressure 141/77 151/75 O2 Sat by Pulse 95 95 98 Oximetry Constitutional: no acute distress, alert, other (OBESE) Eyes: non-icteric ENT: oropharynx moist Neck: supple, no JVD Ascultation: Bilateral: diminished breath sounds, rhonchi Cardiovascular: regular rate and rhythm Gastrointestinal: normoactive bowel sounds, soft, non-tender Integumentary: normal Extremities: no cyanosis, no edema Neurologic: normal mental status, non-focal exam, pupils equal and round, CN II- XII normal Psychiatric: mood appropriate CBC and BMP: 02/27/20 08:00 02/27/20 08:00 ABG, PT/INR, D-dimer: PT/INR, D-dimer D-Dimer 396.04 ng/mlDDU (0-234) H 03/01/20 05:04 Abnormal lab findings: Abnormal Labs 02/24/20 02/24/20 02/24/20 10:11 10:11 10:55 RBC Hgb 16.3 H Hct MCV MCH 34 H MCHC 36 H RDW 13.0 L Lymph % (Auto) 13.2 L [place] % (Auto) 11.4 H Lymph # [place] # 1.2 H Seg Neutrophils % 74.9 H Seg Neutrophils # 7.8 H D-Dimer 676.73 H Sodium Chloride BUN 7 L Glucose 106 H Calcium Ferritin Lactate Dehydrogenase C-Reactive Protein Albumin Coronavirus (PCR) 02/24/20 02/24/20 02/24/20 10:55 10:55 15:01 RBC Hgb Hct MCV MCH MCHC RDW Lymph % (Auto) [place] % (Auto) Lymph # [place] # Seg Neutrophils % Seg Neutrophils # D-Dimer Sodium Chloride BUN Glucose 101 H Calcium Ferritin 2458.0 H Lactate Dehydrogenase 284 H C-Reactive Protein 5.60 H Albumin Coronavirus (PCR) Positive A 02/25/20 02/25/20 02/26/20 08:03 08:03 15:40 RBC Hgb 15.6 H Hct MCV 95 H MCH 33 H MCHC 35 H RDW Lymph % (Auto) [place] % (Auto) 10.1 H Lymph # [place] # 0.9 H Seg Neutrophils % 73.6 H Seg Neutrophils # D-Dimer 1272.41 H Sodium 135 L Chloride 94 L BUN Glucose Calcium 8.3 L Ferritin Lactate Dehydrogenase C-Reactive Protein Albumin Coronavirus (PCR) 02/26/20 02/26/20 02/27/20 15:40 15:40 08:00 RBC 5.28 H Hgb 16.7 H Hct 49.6 H MCV MCH MCHC RDW Lymph % (Auto) [place] % (Auto) 8.9 H Lymph # 0.9 L [place] # Seg Neutrophils % 77.1 H Seg Neutrophils # D-Dimer Sodium Chloride BUN Glucose Calcium Ferritin > 2000.0 H Lactate Dehydrogenase 592 H C-Reactive Protein 5.10 H Albumin Coronavirus (PCR) 02/27/20 03/01/20 03/01/20 08:00 05:04 05:04 RBC Hgb Hct MCV MCH MCHC RDW Lymph % (Auto) [place] % (Auto) Lymph # [place] # Seg Neutrophils % Seg Neutrophils # D-Dimer 396.04 H Sodium 134 L Chloride 96.1 L BUN Glucose 143 H Calcium Ferritin 1081.0 H Lactate Dehydrogenase C-Reactive Protein Albumin 3.7 L Coronavirus (PCR) 03/01/20 05:04 RBC Hgb Hct MCV MCH MCHC RDW Lymph % (Auto) [place] % (Auto) Lymph # [place] # Seg Neutrophils % Seg Neutrophils # D-Dimer Sodium Chloride BUN Glucose Calcium Ferritin Lactate Dehydrogenase 365 H C-Reactive Protein Albumin Coronavirus (PCR)
--- NOTE | 2020-03-01 23:46 | Progress Note ---
Assessment and Plan Day #2 Positive for coronavirus Symptomatically improving Oxygen saturations are around 92-94 (1) Acute hypoxemic respiratory failure Current Visit: Yes Status: Acute Plan to address problem: Supplemental oxygen, pulse oximetry, nebulizer therapy, chest x-ray, incentive spirometry, coronavirus testing. (2) Obesity hypoventilation syndrome Current Visit: Yes Status: Acute Plan to address problem: Supplemental oxygen, nebulizer therapy, noninvasive positive pressure ventilation as clinically indicated, incentive spirometry, early ambulation, pulmonary toilet. (3) Pneumonia Current Visit: Yes Status: Acute Qualifiers: Laterality: left Plan to address problem: Pneumonia protocol: IV antibiotic therapy, chest x-ray, nebulizer therapy, pulse oximetry, blood culture, (4) Suspected 2019 novel coronavirus infection Current Visit: Yes Status: Acute Plan to address problem: COVID-19 protocol: Infectious disease service consult appreciated, coronavirus PCR positive (5) DVT prophylaxis Current Visit: Yes Status: Acute Plan to address problem: SCD to bilateral lower extremities while in bed, patient is ambulatory Subjective Date of service: 03/01/20 Principal diagnosis: COVID Interval history: 24 YO Male with Obesity Hypoventilation Syndrome presents to ED for evaluation. Pt states that he has experienced shortness of breath, fever to 103.3 F, rhinorrhea, nasal congestion, dry cough, difficulty breathing nausea, multiple episodes of vomiting, multiple loose stools over the past 2 days with persistently worsening symptoms over the same timeframe. Patient acknowledges known exposure to COVID-19. Patient transported to [facility] for further evaluation and care of the aforementioned symptoms. Patient seen and evaluated in the [facility] department. Lab and imaging studies reviewed. Patient found to have acute hypoxemic respiratory failure with a pulse oximetry of 87% with exertion, left lower lobe pneumonia, obesity hypoventilation, as well as symptoms consistent with COVID-19 infection. Patient admitted to medical floor due to increased risk of cardiopulmonary decompensation and initiated on pneumonia protocol as well as COVID-19 protocol. Infectious disease service consulted in the emergency department. Patient knowledges fever, positive COVID-19 exposure, shortness of breath, malaise, weakness. Patient denies chest pain, palpitation, syncope, trauma, prolonged travel/immobility, unilateral leg swelling, calf pain, individual/family history of DVT/PE/bleeding/blood clotting disorders. No prior admission for review. No medication listed for reconciliation at the time of my admission. Day #2 Symptomatically better Objective - Constitutional Vitals: Vital Signs - 12hr 03/01/20 03/01/20 03/01/20 11:51 16:22 20:59 Temperature 98.3 F 98.1 F Pulse Rate 64 78 Respiratory 20 18 Rate Blood Pressure 141/77 151/75 O2 Sat by Pulse 95 95 98 Oximetry 03/01/20 23:11 Temperature 98.1 F Pulse Rate 52 L Respiratory 19 Rate Blood Pressure 123/55 O2 Sat by Pulse 96 Oximetry General appearance: Present: no acute distress, well-nourished - EENT Eyes: PERRL, EOM intact ENT: hearing intact, clear oral mucosa Ears: bilateral: normal - Neck Neck: supple, normal ROM - Respiratory Respiratory effort: normal Respiratory: bilateral: CTA - Breasts Breasts: normal - Cardiovascular Rhythm: regular Heart Sounds: Present: S1 & S2. Absent: gallop, rub Extremities: pulses intact, No edema, normal color, Full ROM - Gastrointestinal General gastrointestinal: Present: soft, non-tender, non-distended, normal bowel sounds - Genitourinary Male genitourinary: normal - Integumentary Integumentary: clear, warm, dry - Musculoskeletal Musculoskeletal: 1, strength equal bilaterally - Neurologic Neurologic: moves all extremities - Psychiatric Psychiatric: memory intact, appropriate mood/affect, intact judgment & insight - Labs CBC & Chem 7: 02/27/20 08:00 02/27/20 08:00 Labs: Abnormal lab results 03/01/20 03/01/20 03/01/20 Range/Units 05:04 05:04 05:04 D-Dimer 396.04 H (0-234) ng/mlDDU Ferritin 1081.0 H (13.0-400.0) ng/mL Lactate Dehydrogenase 365 H (91-180) units/L
[2020-03-02] MEDS: methylPREDNISolone Sod Succinate 125 MG/2 ML INJ IV SCH ×3 (05:48→21:38)
[2020-03-02 08:39] LABS: Hematocrit 47.9 % (35.5-45.6); Hemoglobin 16.2 gm/dl (11.8-15.2); Mean Corpuscular HGB Conc 34 % (32-34); Mean Corpuscular Volume 94 fl (84-94); Platelet Count 458 K/mm3 (140-440); Red Blood Count 5.11 M/mm3 (3.65-5.03); Red Cell Distribution Width 13.3 % (13.2-15.2)
[2020-03-02 09:01] LABS: Alanine Aminotransferase 59 units/L (7-56); Albumin 3.9 g/dL (3.9-5); BUN/Creatinine Ratio 23; Blood Urea Nitrogen 16 mg/dL (9-20); Hemolysis Index 17
[2020-03-02 10:36] LABS: Basophils % (Manual) 0 % (0.0-1.8); Eosinophils % (Manual) 0 % (0.0-4.3); Total Cells Counted 100
[2020-03-02 10:39] LABS: Large Platelets Rare; Platelet Estimate Consistent w Auto; RBC Morphology Normal
[2020-03-02] MEDS: ENOXAPARIN 40 MG/0.4 ML INJ SUB-Q SCH (10:51)
[2020-03-02 11:30] LABS: ABG Base Excess 2.1 mmol/L (-2.0-3.0); ABG HCO3 26.7 mmol/L (20.0-26.0); ABG Methemoglobin 0.7 % (0.0-1.5); ABG Oxygen Saturation 94.9 % (95.0-99.0); ABG PCO2 41.6 mm Hg; ABG PH 7.425 pH Units (7.350-7.450); ABG PO2 68.8 mm Hg (80.0-90.0)
--- NOTE | 2020-03-02 11:51 | XRay Report ---
CHEST 1 VIEW INDICATION: LLL pneumonia, covid. COMPARISON: 02/28/2020 FINDINGS: Support devices: None. Heart: Within normal limits. Lungs/Pleura: No acute air space or interstitial disease. Infiltrate or atelectasis at the left lung base has resolved. Additional findings: None. IMPRESSION: No acute findings. Signer Name: Manuelito Smith Jr, MD Signed: 03/02/2020 11:47 AM Workstation Name: [id number]
--- NOTE | 2020-03-02 13:59 | Progress Note ---
Assessment and Plan atient feeling better, breathing better. Patient resting on room air. O2 saturation running 97%. Patient afebrile. has leukocytosis. When he is lying in bed, maintaining prone position. Chest xray 03/02/20 reported No acute air space or interstitial disease. Infiltrate or atelectasis at the left lung base has resolved. ABG ABG pH 7.425 pH Units (7.350-7.450) 03/02/20 11:05 ABG pCO2 41.6 mm Hg 03/02/20 11:05 ABG pO2 68.8 mm Hg (80.0-90.0) L 03/02/20 11:05 ABG O2 Saturation 94.9 % (95.0-99.0) L 03/02/20 11:05 done on FIO2 28% - Patient Problems (1) Acute hypoxemic respiratory failure Current Visit: Yes Status: Acute Plan to address problem: O2 2 litres via nasal canula. Continue I/V solumedrol. (2) Pneumonia Current Visit: Yes Status: Acute Qualifiers: Laterality: left Plan to address problem: Patient is on REMDESVIR and Tocilizumab. Patients Procalcitonin level is low. Infectious diseases suspecting it is viral pneumonia. (3) Obesity hypoventilation syndrome Current Visit: Yes Status: Acute Plan to address problem: ABG ABG pH 7.425 pH Units (7.350-7.450) 03/02/20 11:05 ABG pCO2 41.6 mm Hg 03/02/20 11:05 ABG pO2 68.8 mm Hg (80.0-90.0) L 03/02/20 11:05 ABG O2 Saturation 94.9 % (95.0-99.0) L 03/02/20 11:05 done on FIO2 28% Based on this blood gases, patient not retainng PCO2. (4) Coronavirus infection Current Visit: Yes Status: Acute Plan to address problem: Patient is treated with REMDESVIR and Tocilumab. (5) D-dimer, elevated Current Visit: Yes Status: Acute Plan to address problem: Recommend venous doppler studies and Angio CT of chest. Until above test results come back ,recommend S/C Prophylactic Lovenox. Subjective Date of service: 03/02/20 Principal diagnosis: COVID Interval history: Patient feeling better, breathing better. Patient resting on room air. O2 saturation running 97%. Patient afebrile. has leukocytosis. When he is lying in bed, maintaining prone position. Chest xray 03/02/20 reported No acute air space or interstitial disease. Infiltrate or atelectasis at the left lung base has resolved. ABG ABG pH 7.425 pH Units (7.350-7.450) 03/02/20 11:05 ABG pCO2 41.6 mm Hg 03/02/20 11:05 ABG pO2 68.8 mm Hg (80.0-90.0) L 03/02/20 11:05 ABG O2 Saturation 94.9 % (95.0-99.0) L 03/02/20 11:05 done on FIO2 28% Objective Vital Signs - 12hr 03/02/20 03/02/20 03/02/20 05:47 10:00 11:20 Temperature 98.2 F 97.4 F L Pulse Rate 54 L 62 Respiratory 20 20 Rate Blood Pressure 137/73 122/66 O2 Sat by Pulse 94 97 93 Oximetry 03/02/20 12:00 Temperature Pulse Rate 80 Respiratory 18 Rate Blood Pressure O2 Sat by Pulse 97 Oximetry Constitutional: no acute distress, alert, other (OBESE) Eyes: non-icteric ENT: oropharynx moist Neck: supple, no JVD Ascultation: Bilateral: diminished breath sounds, rhonchi Cardiovascular: regular rate and rhythm Gastrointestinal: normoactive bowel sounds, soft, non-tender Integumentary: normal Extremities: no cyanosis, no edema Neurologic: normal mental status, non-focal exam, pupils equal and round, CN II- XII normal Psychiatric: mood appropriate CBC and BMP: 03/02/20 07:25 03/02/20 07:25 ABG, PT/INR, D-dimer: ABG ABG pH 7.425 pH Units (7.350-7.450) 03/02/20 11:05 ABG pCO2 41.6 mm Hg 03/02/20 11:05 ABG pO2 68.8 mm Hg (80.0-90.0) L 03/02/20 11:05 ABG O2 Saturation 94.9 % (95.0-99.0) L 03/02/20 11:05 PT/INR, D-dimer D-Dimer 396.04 ng/mlDDU (0-234) H 03/01/20 05:04 Abnormal lab findings: Abnormal Labs 02/24/20 02/24/20 02/24/20 10:11 10:11 10:55 WBC RBC Hgb 16.3 H Hct MCV MCH 34 H MCHC 36 H RDW 13.0 L Plt Count Lymph % (Auto) 13.2 L [place] % (Auto) 11.4 H Lymph # [place] # 1.2 H Seg Neutrophils % 74.9 H Seg Neuts % (Manual) Lymphocytes % (Manual) Seg Neutrophils # 7.8 H Seg Neutrophils # Man D-Dimer 676.73 H ABG pO2 ABG HCO3 ABG O2 Saturation Oxyhemoglobin Sodium Potassium Chloride BUN 7 L Creatinine Glucose 106 H Calcium Ferritin ALT Lactate Dehydrogenase C-Reactive Protein Total Protein Albumin Coronavirus (PCR) 02/24/20 02/24/20 02/24/20 10:55 10:55 15:01 WBC RBC Hgb Hct MCV MCH MCHC RDW Plt Count Lymph % (Auto) [place] % (Auto) Lymph # [place] # Seg Neutrophils % Seg Neuts % (Manual) Lymphocytes % (Manual) Seg Neutrophils # Seg Neutrophils # Man D-Dimer ABG pO2 ABG HCO3 ABG O2 Saturation Oxyhemoglobin Sodium Potassium Chloride BUN Creatinine Glucose 101 H Calcium Ferritin 2458.0 H ALT Lactate Dehydrogenase 284 H C-Reactive Protein 5.60 H Total Protein Albumin Coronavirus (PCR) Positive A 02/25/20 02/25/20 02/26/20 08:03 08:03 15:40 WBC RBC Hgb 15.6 H Hct MCV 95 H MCH 33 H MCHC 35 H RDW Plt Count Lymph % (Auto) [place] % (Auto) 10.1 H Lymph # [place] # 0.9 H Seg Neutrophils % 73.6 H Seg Neuts % (Manual) Lymphocytes % (Manual) Seg Neutrophils # Seg Neutrophils # Man D-Dimer 1272.41 H ABG pO2 ABG HCO3 ABG O2 Saturation Oxyhemoglobin Sodium 135 L Potassium Chloride 94 L BUN Creatinine Glucose Calcium 8.3 L Ferritin ALT Lactate Dehydrogenase C-Reactive Protein Total Protein Albumin Coronavirus (PCR) 02/26/20 02/26/20 02/27/20 15:40 15:40 08:00 WBC RBC 5.28 H Hgb 16.7 H Hct 49.6 H MCV MCH MCHC RDW Plt Count Lymph % (Auto) [place] % (Auto) 8.9 H Lymph # 0.9 L [place] # Seg Neutrophils % 77.1 H Seg Neuts % (Manual) Lymphocytes % (Manual) Seg Neutrophils # Seg Neutrophils # Man D-Dimer ABG pO2 ABG HCO3 ABG O2 Saturation Oxyhemoglobin Sodium Potassium Chloride BUN Creatinine Glucose Calcium Ferritin > 2000.0 H ALT Lactate Dehydrogenase 592 H C-Reactive Protein 5.10 H Total Protein Albumin Coronavirus (PCR) 02/27/20 03/01/20 03/01/20 08:00 05:04 05:04 WBC RBC Hgb Hct MCV MCH MCHC RDW Plt Count Lymph % (Auto) [place] % (Auto) Lymph # [place] # Seg Neutrophils % Seg Neuts % (Manual) Lymphocytes % (Manual) Seg Neutrophils # Seg Neutrophils # Man D-Dimer 396.04 H ABG pO2 ABG HCO3 ABG O2 Saturation Oxyhemoglobin Sodium 134 L Potassium Chloride 96.1 L BUN Creatinine Glucose 143 H Calcium Ferritin 1081.0 H ALT Lactate Dehydrogenase C-Reactive Protein Total Protein Albumin 3.7 L Coronavirus (PCR) 03/01/20 03/02/20 03/02/20 05:04 07:25 07:25 WBC 20.7 H RBC 5.11 H Hgb 16.2 H Hct 47.9 H MCV MCH MCHC RDW Plt Count 458 H Lymph % (Auto) [place] % (Auto) Lymph # [place] # Seg Neutrophils % Seg Neuts % (Manual) 88.0 H Lymphocytes % (Manual) 10.0 L Seg Neutrophils # Seg Neutrophils # Man 18.2 H D-Dimer ABG pO2 ABG HCO3 ABG O2 Saturation Oxyhemoglobin Sodium Potassium 5.5 H Chloride BUN Creatinine 0.7 L Glucose 147 H Calcium Ferritin ALT 59 H Lactate Dehydrogenase 365 H C-Reactive Protein Total Protein 6.2 L Albumin Coronavirus (PCR) 03/02/20 11:05 WBC RBC Hgb Hct MCV MCH MCHC RDW Plt Count Lymph % (Auto) [place] % (Auto) Lymph # [place] # Seg Neutrophils % Seg Neuts % (Manual) Lymphocytes % (Manual) Seg Neutrophils # Seg Neutrophils # Man D-Dimer ABG pO2 68.8 L ABG HCO3 26.7 H ABG O2 Saturation 94.9 L Oxyhemoglobin 92.8 L Sodium Potassium Chloride BUN Creatinine Glucose Calcium Ferritin ALT Lactate Dehydrogenase C-Reactive Protein Total Protein Albumin Coronavirus (PCR) Chest x-ray: report reviewed, image reviewed Additional Studies: CHEST 1 VIEW 03/02/20 INDICATION: LLL pneumonia, covid. COMPARISON: 02/28/2020 FINDINGS: Support devices: None. Heart: Within normal limits. Lungs/Pleura: No acute air space or interstitial disease. Infiltrate or atelectasis at the left lung base has resolved. Additional findings: None. IMPRESSION: No acute findings.
--- NOTE | 2020-03-02 15:39 | Progress Note ---
Assessment and Plan Cultures: Blood cultures no growth today COVID POSITIVE Assessment: 24 years old male with history of morbid obesity, admitted on due to 2-day history of worsening fever, rhinorrhea, dry cough, nausea, vomiting, diarrhea for 3 days: #Sepsis: Fever improving; source likely pneumonia. #COVID pneumonia: Inflammatory markers elevated but downtrending. completed Remdesivir, completed Tocilizumab x 1 02/27/2020. On steroids #Obesity #Acute respiratory failure: weaned to room air. Recommendations: completed Remdesivir, completed Tocilizumab x 1 02/27/2020 On steroids, upon discharge, can switch to PO dexamethasone 6 mg daily to complete total 10 days Ok for discharge from ID standpoint. Ambulatory sats of 95% on room air. Traci Bergeron MD, FACP [facility] C: [phone] O: [phone] F: [phone] Subjective Date of service: 03/02/20 Principal diagnosis: COVID Interval history: Afebrile. Weaned to room air. D-dimer down to 396, ferritin 1081, CRP 0.50 Objective - Exam Narrative Exam: Physical Exam (reviewed in chart due to PPE conservation) Constitutional: limited due to PPE conservation strategy Head, Ears, Nose: limited due to PPE conservation strategy Eyes: limited due to PPE conservation strategy Neck: limited due to PPE conservation strategy Oral: limited due to PPE conservation strategy Cardiovascular: limited due to PPE conservation strategy Respiratory: limited due to PPE conservation strategy GI: limited due to PPE conservation strategy Musculoskeletal: limited due to PPE conservation strategy Skin: limited due to PPE conservation strategy Hem/Lymphatic: limited due to PPE conservation strategy Psych: limited due to PPE conservation strategy Neurological: limited due to PPE conservation strategy - Constitutional Vitals: Vital Signs Temp Pulse Resp BP Pulse Ox 97.4 F L 80 20 122/66 95 03/02/20 11:20 03/02/20 12:00 03/02/20 14:02 03/02/20 11:20 03/02/20 14:02 Temperature -Last 24 Hours Temperature 97.4 F Temperature 98.2 F Temperature 98.1 F Temperature 98.1 F - Labs CBC & Chem 7: 03/02/20 07:25 03/02/20 07:25 Labs: Abnormal lab results 03/02/20 03/02/20 03/02/20 Range/Units 07:25 07:25 11:05 WBC 20.7 H (4.5-11.0) K/mm3 RBC 5.11 H (3.65-5.03) M/mm3 Hgb 16.2 H (11.8-15.2) gm/dl Hct 47.9 H (35.5-45.6) % Plt Count 458 H (140-440) K/mm3 Seg Neuts % (Manual) 88.0 H (40.0-70.0) % Lymphocytes % (Manual) 10.0 L (13.4-35.0) % Seg Neutrophils # Man 18.2 H (1.8-7.7) K/mm3 ABG pO2 68.8 L (80.0-90.0) mm Hg ABG HCO3 26.7 H (20.0-26.0) mmol/L ABG O2 Saturation 94.9 L (95.0-99.0) % Oxyhemoglobin 92.8 L (95.0-99.0) % Potassium 5.5 H (3.6-5.0) mmol/L Creatinine 0.7 L (0.8-1.5) mg/dL Glucose 147 H (75-100) mg/dL ALT 59 H (7-56) units/L Total Protein 6.2 L (6.3-8.2) g/dL
[2020-03-03] MEDS: methylPREDNISolone Sod Succinate 125 MG/2 ML INJ IV SCH (05:51)
[2020-03-03 06:45] VITALS: BP 124/68
--- NOTE | 2020-03-03 08:57 | Progress Note ---
Assessment and Plan Day #8 Positive for coronavirus Symptomatically improving Oxygen saturations are around 92-94 May not need Home O2 (1) Acute hypoxemic respiratory failure Current Visit: Yes Status: Acute Plan to address problem: Needs home O2 completed Remdesivir, completed Tocilizumab x 1 02/27/2020 On steroids, upon discharge, can switch to PO dexamethasone 6 mg daily to complete total 10 days Ok for discharge from ID standpoint. Ambulatory sats of 95% on room air. (2) Obesity hypoventilation syndrome Current Visit: Yes Status: Acute Plan to address problem: Supplemental oxygen, nebulizer therapy, noninvasive positive pressure ventilation as clinically indicated, incentive spirometry, early ambulation, pulmonary toilet. Counseled about losing weight (3) Pneumonia Current Visit: Yes Status: Acute Qualifiers: Laterality: left Plan to address problem: Pneumonia protocol: IV antibiotic therapy, chest x-ray, nebulizer therapy, pulse oximetry, blood culture, May not need home oxygen (4) Suspected 2019 novel coronavirus infection Current Visit: Yes Status: Acute Plan to address problem: COVID-19 protocol: Infectious disease service consult appreciated, coronavirus PCR positive May not need home oxygen (5) DVT prophylaxis Current Visit: Yes Status: Acute Plan to address problem: SCD to bilateral lower extremities while in bed, patient is ambulatory Discharge planning If sats are okay with ambulation will discharge on oral dexamethasone Subjective Date of service: 03/02/20 Principal diagnosis: COVID Interval history: 24 YO Male with Obesity Hypoventilation Syndrome presents to ED for evaluation. Pt states that he has experienced shortness of breath, fever to 103.3 F, rhinorrhea, nasal congestion, dry cough, difficulty breathing nausea, multiple episodes of vomiting, multiple loose stools over the past 2 days with persistently worsening symptoms over the same timeframe. Patient acknowledges known exposure to COVID-19. Patient transported to [facility] for further evaluation and care of the aforementioned symptoms. Patient seen and evaluated in the emergency department. Lab and imaging studies reviewed. Patient found to have acute hypoxemic respiratory failure with a pulse oximetry of 87% with exertion, left lower lobe pneumonia, obesity hypoventilation, as well as symptoms consistent with COVID-19 infection. Patient admitted to medical floor due to increased risk of cardiopulmonary decompensation and initiated on pneumonia protocol as well as COVID-19 protocol. Infectious disease service consulted in the emergency department. Patient knowledges fever, positive COVID-19 exposure, shortness of breath, malaise, weakness. Patient denies chest pain, palpitation, syncope, trauma, prolonged travel/immobility, unilateral leg swelling, calf pain, individual/family history of DVT/PE/bleeding/blood clotting disorders. No prior admission for review. No medication listed for reconciliation at the time of my admission. Day #8 Symptomatically better Objective - Constitutional Vitals: Vital Signs - 12hr 03/02/20 03/03/20 21:56 05:56 Temperature 97.9 F 97.7 F Pulse Rate 68 79 Respiratory 20 18 Rate Blood Pressure 156/77 124/68 O2 Sat by Pulse 95 90 Oximetry General appearance: Present: no acute distress, well-nourished - EENT Eyes: PERRL, EOM intact ENT: hearing intact, clear oral mucosa Ears: bilateral: normal - Neck Neck: supple, normal ROM - Respiratory Respiratory effort: normal Respiratory: bilateral: CTA - Breasts Breasts: normal - Cardiovascular Rhythm: regular Heart Sounds: Present: S1 & S2. Absent: gallop, rub Extremities: pulses intact, No edema, normal color, Full ROM - Gastrointestinal General gastrointestinal: Present: soft, non-tender, non-distended, normal bowel sounds - Genitourinary Male genitourinary: normal - Integumentary Integumentary: clear, warm, dry - Musculoskeletal Musculoskeletal: 1, strength equal bilaterally - Neurologic Neurologic: moves all extremities - Psychiatric Psychiatric: memory intact, appropriate mood/affect, intact judgment & insight - Labs CBC & Chem 7: 03/02/20 07:25 03/02/20 07:25 Labs: Abnormal lab results 03/02/20 03/02/20 03/02/20 Range/Units 07:25 07:25 11:05 Seg Neuts % (Manual) 88.0 H (40.0-70.0) % Lymphocytes % (Manual) 10.0 L (13.4-35.0) % Seg Neutrophils # Man 18.2 H (1.8-7.7) K/mm3 ABG pO2 68.8 L (80.0-90.0) mm Hg ABG HCO3 26.7 H (20.0-26.0) mmol/L ABG O2 Saturation 94.9 L (95.0-99.0) % Oxyhemoglobin 92.8 L (95.0-99.0) % Potassium 5.5 H (3.6-5.0) mmol/L Creatinine 0.7 L (0.8-1.5) mg/dL Glucose 147 H (75-100) mg/dL ALT 59 H (7-56) units/L Total Protein 6.2 L (6.3-8.2) g/dL
--- NOTE | 2020-03-03 09:12 | Discharge Summary ---
Providers - Providers Date of Admission: 02/24/20 12:28 Date of discharge: 03/03/20 Attending physician: AMY CHAVEZ 02/24/20 12:37 Consult to Physician [CONS] Routine Comment: Consulting Provider: NATALIE PENG Physician Instructions: Reason For Exam: COVID 19 PUI 02/26/20 14:52 Consult to Physician [CONS] Routine Comment: Consulting Provider: CARRILLO GAMEZ Physician Instructions: Reason For Exam: Hypoventilation Primary care physician: ADMITTING SUPERVISOR Hospitalization Condition: Stable Disposition: DC- TO HOME OR SELFCARE Core Measure Documentation - Palliative Care Palliative Care/ Comfort Measures: Not Applicable - Core Measures Any of the following diagnoses?: none Exam - Constitutional Vitals: Temp Pulse Resp BP Pulse Ox 97.7 F 79 18 124/68 90 03/03/20 05:56 03/03/20 05:56 03/03/20 05:56 03/03/20 05:56 03/03/20 05:56 Plan Follow up with: PRIMARY MD DOMITILA [Primary Care Provider] - 3-5 Days Prescriptions: dexAMETHasone [Decadron] 6 mg PO QDAY #10 tablet
[2020-03-03] MEDS: ENOXAPARIN 40 MG/0.4 ML INJ SUB-Q SCH (10:18)
--- NOTE | 2020-03-03 13:47 | Progress Note ---
Assessment and Plan - Patient Problems (1) Acute hypoxemic respiratory failure Status: Acute (2) Pneumonia Status: Acute Qualifiers: Laterality: left (3) Obesity hypoventilation syndrome Status: Acute (4) Coronavirus infection Status: Acute (5) D-dimer, elevated Status: Acute Subjective Date of service: 03/03/20 Principal diagnosis: COVID Interval history: P Objective Vital Signs - 12hr 03/03/20 03/03/20 03/03/20 05:56 10:00 10:22 Temperature 97.7 F Pulse Rate 79 91 H Respiratory 18 18 Rate Blood Pressure 124/68 O2 Sat by Pulse 90 96 96 Oximetry Eyes: non-icteric ENT: oropharynx moist Neck: supple, no JVD Gastrointestinal: normoactive bowel sounds Neurologic: motor strength normal and CBC and BMP: 03/02/20 07:25 03/02/20 07:25 ABG, PT/INR, D-dimer: ABG ABG pH 7.425 pH Units (7.350-7.450) 03/02/20 11:05 ABG pCO2 41.6 mm Hg 03/02/20 11:05 ABG pO2 68.8 mm Hg (80.0-90.0) L 03/02/20 11:05 ABG O2 Saturation 94.9 % (95.0-99.0) L 03/02/20 11:05 PT/INR, D-dimer D-Dimer 396.04 ng/mlDDU (0-234) H 03/01/20 05:04 Abnormal lab findings: Abnormal Labs 02/24/20 02/24/20 02/24/20 10:11 10:11 10:55 WBC RBC Hgb 16.3 H Hct MCV MCH 34 H MCHC 36 H RDW 13.0 L Plt Count Lymph % (Auto) 13.2 L [place] % (Auto) 11.4 H Lymph # [place] # 1.2 H Seg Neutrophils % 74.9 H Seg Neuts % (Manual) Lymphocytes % (Manual) Seg Neutrophils # 7.8 H Seg Neutrophils # Man D-Dimer 676.73 H ABG pO2 ABG HCO3 ABG O2 Saturation Oxyhemoglobin Sodium Potassium Chloride BUN 7 L Creatinine Glucose 106 H Calcium Ferritin ALT Lactate Dehydrogenase C-Reactive Protein Total Protein Albumin Coronavirus (PCR) 06/29/20 06/29/20 06/29/20 10:55 10:55 15:01 WBC RBC Hgb Hct MCV MCH MCHC RDW Plt Count Lymph % (Auto) [place] % (Auto) Lymph # [place] # Seg Neutrophils % Seg Neuts % (Manual) Lymphocytes % (Manual) Seg Neutrophils # Seg Neutrophils # Man D-Dimer ABG pO2 ABG HCO3 ABG O2 Saturation Oxyhemoglobin Sodium Potassium Chloride BUN Creatinine Glucose 101 H Calcium Ferritin 2458.0 H ALT Lactate Dehydrogenase 284 H C-Reactive Protein 5.60 H Total Protein Albumin Coronavirus (PCR) Positive A 02/25/20 02/25/20 02/26/20 08:03 08:03 15:40 WBC RBC Hgb 15.6 H Hct MCV 95 H MCH 33 H MCHC 35 H RDW Plt Count Lymph % (Auto) [place] % (Auto) 10.1 H Lymph # [place] # 0.9 H Seg Neutrophils % 73.6 H Seg Neuts % (Manual) Lymphocytes % (Manual) Seg Neutrophils # Seg Neutrophils # Man D-Dimer 1272.41 H ABG pO2 ABG HCO3 ABG O2 Saturation Oxyhemoglobin Sodium 135 L Potassium Chloride 94 L BUN Creatinine Glucose Calcium 8.3 L Ferritin ALT Lactate Dehydrogenase C-Reactive Protein Total Protein Albumin Coronavirus (PCR) 02/26/20 02/26/20 02/27/20 15:40 15:40 08:00 WBC RBC 5.28 H Hgb 16.7 H Hct 49.6 H MCV MCH MCHC RDW Plt Count Lymph % (Auto) [place] % (Auto) 8.9 H Lymph # 0.9 L [place] # Seg Neutrophils % 77.1 H Seg Neuts % (Manual) Lymphocytes % (Manual) Seg Neutrophils # Seg Neutrophils # Man D-Dimer ABG pO2 ABG HCO3 ABG O2 Saturation Oxyhemoglobin Sodium Potassium Chloride BUN Creatinine Glucose Calcium Ferritin > 2000.0 H ALT Lactate Dehydrogenase 592 H C-Reactive Protein 5.10 H Total Protein Albumin Coronavirus (PCR) 02/27/20 03/01/20 03/01/20 08:00 05:04 05:04 WBC RBC Hgb Hct MCV MCH MCHC RDW Plt Count Lymph % (Auto) [place] % (Auto) Lymph # [place] # Seg Neutrophils % Seg Neuts % (Manual) Lymphocytes % (Manual) Seg Neutrophils # Seg Neutrophils # Man D-Dimer 396.04 H ABG pO2 ABG HCO3 ABG O2 Saturation Oxyhemoglobin Sodium 134 L Potassium Chloride 96.1 L BUN Creatinine Glucose 143 H Calcium Ferritin 1081.0 H ALT Lactate Dehydrogenase C-Reactive Protein Total Protein Albumin 3.7 L Coronavirus (PCR) 03/01/20 03/02/20 03/02/20 05:04 07:25 07:25 WBC 20.7 H RBC 5.11 H Hgb 16.2 H Hct 47.9 H MCV MCH MCHC RDW Plt Count 458 H Lymph % (Auto) [place] % (Auto) Lymph # [place] # Seg Neutrophils % Seg Neuts % (Manual) 88.0 H Lymphocytes % (Manual) 10.0 L Seg Neutrophils # Seg Neutrophils # Man 18.2 H D-Dimer ABG pO2 ABG HCO3 ABG O2 Saturation Oxyhemoglobin Sodium Potassium 5.5 H Chloride BUN Creatinine 0.7 L Glucose 147 H Calcium Ferritin ALT 59 H Lactate Dehydrogenase 365 H C-Reactive Protein Total Protein 6.2 L Albumin Coronavirus (PCR) 03/02/20 11:05 WBC RBC Hgb Hct MCV MCH MCHC RDW Plt Count Lymph % (Auto) [place] % (Auto) Lymph # [place] # Seg Neutrophils % Seg Neuts % (Manual) Lymphocytes % (Manual) Seg Neutrophils # Seg Neutrophils # Man D-Dimer ABG pO2 68.8 L ABG HCO3 26.7 H ABG O2 Saturation 94.9 L Oxyhemoglobin 92.8 L Sodium Potassium Chloride BUN Creatinine Glucose Calcium Ferritin ALT Lactate Dehydrogenase C-Reactive Protein Total Protein Albumin Coronavirus (PCR)
== END 2020-03-03 13:58 | disposition home or self-care (01) | DRG 871 ==
LOC: ED 09:15 → 3A 12:28
PROVIDERS: ADMIT Internal Medicine; ATTEND Internal Medicine
PROC: 4A033R1 Measurement of Arterial Saturation, Peripheral, Percutaneous Approach (ICD-10-PCS; principal; 2020-02-26)
DX: A41.89 Other specified sepsis (principal); U07.1 COVID-19; J12.89 Other viral pneumonia; J96.01 Acute respiratory failure with hypoxia; E66.2 Morbid (severe) obesity with alveolar hypoventilation; Z68.31 Body mass index [BMI] 31.0-31.9, adult; Z83.3 Family history of diabetes mellitus; Z82.49 Family history of ischemic heart disease and other diseases of the circulatory system
CPT/HCPCS: 36415; 36600; 71045; 80048; 80053; 82140; 82728; 82803; 82947; 83615; 84145; 85007; 85025; 85379; 86140; 86850; 86900; 86901; 87040; 94760; G0378; J0456; J0696; J1650; J2405; J2920; J2930; J7030; J7050; U0003-CS